=== PATIENT | male | born 1945 | race Caucasian/White ===

== ENCOUNTER 2017-10-01 21:38 | Inpatient (IN) | payer OTHER ==
[~2017-10-01] VITALS: Ht 160 cm; Wt 61.0 kg
[~2017-10-01 21:38] MED LIST: ASPIRIN EC325 M1; ATENOLOL 50MG T50 M1 PO; BACTRIM DS TAB1 EACH PO; BENADRYL25 MG; BLOOD PRESSURE MED; CHLORTHALIDONE25 MG PO; CHOLESTEROL MED; COZAAR 50 MG TA50 M2 PO; DUONEB 2.5-0.5 M3 ML INH; HYDROXYZINE HCL25 M1 PO; MEDROLDOSEPACK PO; PREDNISONE 20 M20 MG PO; RED YEAST RICE600 MG; STRI MC; VENTOLIN HFA 1818 GM INH; [UNRECOGNIZED DRUG - OTHER] MC
[2017-10-01 21:51] VITALS: BP 99/45
[2017-10-01 22:18] LABS: ABSOLUTE BASOPHILS 0.1 thou/uL (0.0-0.2); ABSOLUTE LYMPHOCYTES 1.4 thou/uL (0.8-5.3); ABSOLUTE MONOCYTES 1.2 thou/uL (0.0-1.2); ABSOLUTE NEUTROPHILS 11.4 thou/uL (1.6-8.1); BASOPHILS 0.7 %; EOSINOPHILS 0.2 %; HEMATOCRIT 39.2 % (42.0-52.0); HEMOGLOBIN 13.1 gm/dL (14.0-18.0); LYMPHOCYTES 10.1 %; MCH 29.2 pg (26.0-34.0); MCHC 33.4 g/dL (28.0-37.0); MCV 87.5 fL (80.0-100.0); MONOCYTES 8.3 %; MPV 7.5 fl. (7.2-11.1); NUCLEATED RBCS 0 /100WBC; PLATELET COUNT* 364 thou/uL (150-400); POLYS 80.7 %; RBC 4.48 mil/uL (4.50-6.00); WBC 14.1 thou/uL (4.0-11.0)
[2017-10-01 22:24] LABS: ANION GAP 12 mmol/L (7-16); BUN 71 mg/dL (7-18); CALCIUM 8.2 mg/dL (8.5-10.1); CHLORIDE 88 mmol/L (98-107); CO2 26 mmol/L (21-32); CREATININE 2.6 mg/dL (0.6-1.3); GLUCOSE 116 mg/dL (70-99); SODIUM 126 mmol/L (136-145)
[2017-10-01 22:27] LABS: INR 1.3; PROTIME 12.2 Seconds (9.20-11.50)
[2017-10-01 22:28] LABS: POTASSIUM 2.9 mmol/L (3.5-5.1)
[2017-10-01 22:40] LABS: ALBUMIN 2.3 g/dL (3.4-5.0); ALKALINE PHOSPHATASE 96 U/L (46-116); LIPASE 733 U/L (73-393); NT-PRO BRAIN NAT PEPTIDE 7461 pg/mL (<300); SGOT 27 U/L (15-37); SGPT 19 U/L (30-65); TOTAL BILIRUBIN 0.8 mg/dL (<0.1-1.0); TROPONIN-I LEVEL <0.06 ng/mL (<0.06)
[2017-10-01 23:45] LABS: URINE BILIRUBIN NEGATIVE (Negative); URINE BLOOD 2+ (Negative); URINE CLARITY CLEAR; URINE COLOR YELLOW; URINE GLUCOSE-RANDOM NEGATIVE (Negative); URINE KETONES NEGATIVE (Negative); URINE LEUKOCYTES 2+ (Negative); URINE NITRITE NEGATIVE (Negative); URINE PROTEIN NEGATIVE (Negative); URINE UROBILINOGEN 0.2 E.U./dl (0.2-1.0)
[2017-10-01 23:49] VITALS: BP 134/54
[2017-10-01 23:50] VITALS: BP 112/53
[2017-10-01 23:52] LABS: BACTERIA >30 Many /HPF (None Seen); CELLULAR CASTS 4-10 Moderate /LPF (None Seen); COARSE GRANULAR CASTS 0-3 Few /LPF (None Seen); CRYSTALS None Seen /LPF (None Seen); FINE GRANULAR CASTS 0-3 Few /LPF (None Seen); MUCUS 4-6 Moderate strn/LPF (None Seen); SQUAMOUS 0-3 Few /LPF (0-3); URINE RBC >20 Many /HPF (0-2); URINE WBC >25 Many /HPF (0-5); WBC CLUMPS Moderate (None Seen)
[2017-10-02 05:14] LABS: HEMOGLOBIN 12.6 gm/dL (14.0-18.0); MCH 29.1 pg (26.0-34.0); MCHC 33.2 g/dL (28.0-37.0); MCV 87.9 fL (80.0-100.0); MPV 7.5 fl. (7.2-11.1); RBC 4.32 mil/uL (4.50-6.00); WBC 12.8 thou/uL (4.0-11.0)
[2017-10-02 06:11] LABS: ALBUMIN 2.1 g/dL (3.4-5.0); CALCIUM 7.9 mg/dL (8.5-10.1); CREATININE 2.3 mg/dL (0.6-1.3); TOTAL BILIRUBIN 0.6 mg/dL (<0.1-1.0); TOTAL PROTEIN 5.9 g/dL (6.4-8.2)
--- NOTE | 2017-10-02 06:54 | NUR ---
PT ARRIVED TO UNIT FROM THE ER AT 2350. PT IS ALERT AND ORIENTED AT THAT TIME. VSS. PERRLA. PT IS VERY HARD OF HEARING. NO COMPLAINTS OF PAIN. PT HAS A PERSISTANT DRY COUGH. NO SPUTUM NOTED. CT SHOWS POSSIBLE NECROTIZING PNEUMONIA OR POSSIBLY TB. PT IS IN REVERSE ISOLATION. PT IS IN SINUS BRADYCARDIA.
[2017-10-02 08:00] VITALS: BP 123/56
--- NOTE | 2017-10-02 10:09 | EKG ---
[place] [address] ELECTROCARDIOGRAM REPORT Name: MARGIE LEUNG SR Room: [place] [address] ADM IN .R.#: [id number] Admission: 10/01/17 Attend Phys: Oliver Pearson Discharge: Date of : 41 Report #: [id number] THIS REPORT FOR: //name// [facility] ED Test Date: 2017-10-01 Test Time: 21:58:00 Pat Name: MARGIE LEUNG Department: Room: [facility] Gender: M Vp Home Health: OR : 1945 Requested By: Krystyna Yadav Order Number: [id number] MD: Evens Hankins Measurements Intervals Switzer Rate: 56 P: 50 CA: 159 QRS: 61 QRSD: 97 T: 40 QT: 466 QTc: 450 Interpretive Statements Sinus bradycardia nonspecific st changes No previous ECG available for comparison Electronically Signed On 10-02-2017 10:09:30 CDT by Evens Hankins [email or web address] <ELECTRONICALLY SIGNED> By: Evens Hankins MD, [facility] 10/02/17 1009 [id number] Evens Hankins MD, FACC /EPI
[2017-10-02 12:00] VITALS: BP 99/52
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
[2017-10-02 16:00] VITALS: BP 102/48
--- NOTE | 2017-10-02 18:22 | NUR ---
PATINET RESTING IN BED. ISOLATION FOR POSSIBLE TB. WHEAL TEST TO LEFT FOREARM ADMINISTERED TODAY, TO BE READ 48-72 HOURS AFTER ADMINISTRATION. AOX3 BUT CONFUSED AT TIMES. UP WITH STANDBY ASSIST. FAMILY AT BEDSIDE THE MAJORITY OF THE DAY. HOURLY ROUNDING COMPLETED FOR PATIENT SAFETY. URINE SAMPLE SENT TO LAB./ PATINET HAS NOT HAD A BOWEL MOVEMENT TODAY FOR SAMPLE. PATIENT HAS NOT PRODUCED SPUTUM FOR SAMPLE TODAY.
[2017-10-02 20:31] VITALS: BP 106/54
[2017-10-03 01:01] VITALS: BP 122/57
[2017-10-03 04:22] VITALS: BP 130/64
[2017-10-03 04:51] LABS: BE -2.8 mmol/L (-2 to +3); HCO3 19.7 mmol/L (22.0-26.0); PCO2 28.5 mmHg (35.0-45.0); pH 7.458 (7.340-7.450)
[2017-10-03 04:54] LABS: PO2 58.8 mmHg (75.0-100.0)
[2017-10-03 05:07] LABS: CALCIUM 8.3 mg/dL (8.5-10.1); CREATININE 1.7 mg/dL (0.6-1.3); MAGNESIUM 2.1 mg/dL (1.8-2.4); POTASSIUM 3.4 mmol/L (3.5-5.1)
[2017-10-03 05:14] LABS: HEMATOCRIT 40.2 % (42.0-52.0); HEMOGLOBIN 13.3 gm/dL (14.0-18.0); MCH 29.1 pg (26.0-34.0); MCHC 33.2 g/dL (28.0-37.0); MCV 87.4 fL (80.0-100.0); RBC 4.59 mil/uL (4.50-6.00); RDW-CV 14.1 % (10.5-14.5); WBC 14.8 thou/uL (4.0-11.0)
--- NOTE | 2017-10-03 06:46 | NUR ---
Pt reports he slept for most of the night. Awakened at 0430 when labs were drawn. Up to BR X1 assist to attempt BM, though pt had no BM. Pt's PO2 59 per am ABG; placed on 2L O2 per NC. Pt c/o discomfort with O2. Placed humidifier to O2 and requested resp tx. Will continue to monitor.
--- NOTE | 2017-10-03 08:09 | CON ---
[address] [address] CONSULTATION Name: MARGIE LEUNG SR Room: [address] IN M.R.#: [id number] Admission: 10/01/17 Attend Phys: Oliver Pearson Discharge: Date of : 41 Report #: [id number] THIS REPORT FOR: //name// CC: MARIANO Sawyer DATE OF SERVICE: 10/02/2017 ATTENDING PHYSICIAN: Colt St M.D. REASON FOR EVALUATION: CABG, pneumonia. HISTORY OF PRESENT ILLNESS: Chart reviewed, patient examined, 72-year-old gentleman with longstanding history of heavy smoking, also has issues of recurrent urinary tract infections, has a suprapubic catheter, presented with lightheadedness, was found to have electrolyte abnormalities including sodium of 126, creatinine 2.6. Lactic acid up to 2.3. Imaging of the chest, both plain film and CT noted a cavitary process, 3 x 7 cm in the left lower lobe with some air fluid level consistent with abscess. He is quite encephalopathic, which per the daughter, she was concerned about early dementia for a period of time, but this is clearly worse, not clear that he has had fevers, appears to have some weight loss. Does have some intermittent cough productive of some yellow sputum. Blood cultures are sterile thus far. Urinary antigens for pneumococcus and legionella are pending. Urine culture, sputum culture including AFB are pending as well. Empirically placed on meropenem, azithromycin. ALLERGIES: None known. MEDICATIONS: Include azithromycin, promethazine, ondansetron, chlorthalidone, atenolol, meropenem. PAST MEDICAL HISTORY: History of depression and history of suprapubic catheter, right inguinal hernia with mesh. SOCIAL HISTORY: Heavy smoker, daily ethanol. FAMILY HISTORY: Noncontributory. REVIEW OF SYSTEMS: Somewhat limited. Denies significant abdominal-related complaints. He has poor appetite. PHYSICAL EXAMINATION: GENERAL: He is alert. He is clearly confused. Appears chronically ill, undernourished. VITAL SIGNS: Temperature 97.6, pulse 58, respirations 16, [place] [address] CONSULTATION Name: MARGIE LEUNG Room: [address] IN [facility]#: [id number] Admission: 10/01/17 Attend Phys: Oliver Pearson Discharge: Date of : 41 Report #: [id number] 112/53. SKIN: Warm, dry. HEENT: Remarkable for poor dentition, multiple missing teeth. NECK: Supple. LUNGS: Few scattered coarse breath sounds, particularly on the left side. HEART: Borderline bradycardic, appears to be regular. ABDOMEN: Soft. There are no overt peritoneal signs. GENITOURINARY: Deferred. RECTAL: Deferred. LABORATORY DATA: Initial CBC: White count of 14.1, H and H 13.1 and 39.2, platelets of 364. Differential unremarkable. PT of 12.2, INR 1.3. A chest x-ray as described above, changes in the left lower lobe infiltrate with cavity, air fluid level. Electrolytes: Sodium 126, potassium 2.9, chloride 88, bicarbonate is 26, BUN and creatinine 71 and 2.6, glucose of 116. AST of 27, ALT of 19, lipase of 733, albumin of 2.3. Total protein 7.0. Estimated GFR of 24. Lactic acid initially was 1.8, repeat was 2.3. Prealbumin of 5.1. 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 Blood cultures sterile thus far. CT of the chest, left lower lobe infiltrate. A 3 x 7 cm cavitary process with air fluid and air fluid levels in the left lower lobe of the infiltrate. Lactic acid repeat was 1.6. ASSESSMENT: Cavitary pneumonia in the setting certainly broad differential. Certainly infection being high concern. exclude a malignancy either, but I agree with empiric antimicrobial therapy, lung abscess seems reasonable. I cannot find any evidence of TB exposure, although the site of the lower lobe deems it less likely. We will await the pending results including AFB smear, maintain isolation for now. We will adjust the meropenem dosing. Renal dysfunction. Discussed with the patient as well as his daughter. <ELECTRONICALLY SIGNED> By: Gil Moya MD 10/03/17 0809 1113 [id number] Moya MD /nt
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
[2017-10-03 11:31] VITALS: BP 116/55
--- NOTE | 2017-10-03 12:31 | NUR ---
CONTINUE TO FOLLOW, MET WITH PT'S DTR IN THE [facility]. PT STILL CONFUSED TODAY.
[2017-10-03 16:00] VITALS: BP 111/50
--- NOTE | 2017-10-03 20:17 | NUR ---
PATIENT RESTING IN BED. VITAL SIGNS STABLE ANDPAITNET IN NO APPARENT SIGNS OF DISTRESS AT THIOS TIME. HOURLKY ROUNDING COMPLETED FOR PATIENT SAFETY. PRECAUTIONS FOR SUSPECTED TB. ONE SPUTUM SAMPLE OBTAINED AND SEBT TO LAB, AWAITING 2 MORE SAMPLES.
[2017-10-03 20:20] VITALS: BP 131/69
[2017-10-04 04:00] VITALS: BP 134/61
--- NOTE | 2017-10-04 04:32 | NUR ---
A&O X4 CALM COOPERITVE. ISO FOR R/O TB. SR ON THE MONITOR. PT REPORTS PAIN CONGESTION. PT IS STAND BY ASSIST. SEE MAR. SEE CHARTING. PT REFUSED 0000 VITALS. VITALS WNL. FALL PRECAUTIONS IN PLACE. HOURLY ROUNDING FOR SAFETY.
[2017-10-04 07:34] LABS: HEMATOCRIT 37.5 % (42.0-52.0); HEMOGLOBIN 12.2 gm/dL (14.0-18.0); MCH 28.6 pg (26.0-34.0); MCHC 32.6 g/dL (28.0-37.0); MCV 87.8 fL (80.0-100.0); MPV 7.4 fl. (7.2-11.1); RBC 4.27 mil/uL (4.50-6.00); RDW-CV 14.3 % (10.5-14.5); WBC 14.1 thou/uL (4.0-11.0)
[2017-10-04 07:38] LABS: CALCIUM 7.9 mg/dL (8.5-10.1); CREATININE 1.5 mg/dL (0.6-1.3); POTASSIUM 3.3 mmol/L (3.5-5.1)
[2017-10-04 08:54] VITALS: BP 141/75
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
[2017-10-04 11:37] VITALS: BP 125/63
--- NOTE | 2017-10-04 14:31 | NUR ---
CONTINUE TO FOLLOW, DISCUSSED WITH AND ALISON MARMOLEJO. PT TO HAVE THERAPY, STILL CONFUSED. DTR GONE FOR THE DAY
[2017-10-04 16:25] VITALS: BP 133/87
[2017-10-04 16:56] LABS: BE -4.5 mmol/L (-2 to +3); HCO3 17.9 mmol/L (22.0-26.0); PCO2 26.6 mmHg (35.0-45.0); PO2 93.8 mmHg (75.0-100.0); pH 7.446 (7.340-7.450)
--- NOTE | 2017-10-04 17:04 | NUR ---
PT SHAWN RESTING IN BED, WATCHING TV- CARDIAC MONIOTOR IN PLACE ORDERED, TRACING ST- PT HR AT [address] IN 120-140'S- PT FOUND IN ROOM WITH O2 OFF, AND LABORED RESP- PT NOTED TO BE CLAMEY- O2 REAPPLIED AT 2L, WITH O2 SAT NOTED AT 94%- IVF STOPPED AND NOTIFIED, ORDERS RECIEVED FOR STAT ABG AND LACTIC- BNP TO BE COMPLETED WITH OKAY TO ADD TO MORNING [place] [address], IVF D/C'D WITH IV LASIX 40MG X1 ORDERED- ABG RESULTED, AWAITING LACTIC RESULTS AT THIS TIME- PT DENIES ANY PAIN AT THIS TIME- CALL LIGHT AND PERSONAL BELONGINGS WITH IN REACH- ALL NEEDS MET AT THIS TIME-WCTM
[2017-10-04 20:10] VITALS: BP 122/55
[2017-10-05] VITALS: BP 109/44
[2017-10-05 04:00] VITALS: BP 106/57
[2017-10-05 04:59] LABS: ABSOLUTE BASOPHILS 0.1 thou/uL (0.0-0.2); ABSOLUTE MONOCYTES 0.4 thou/uL (0.0-1.2); HEMATOCRIT 37.5 % (42.0-52.0); HEMOGLOBIN 12.5 gm/dL (14.0-18.0); LYMPHOCYTES 10.7 %; MCH 28.9 pg (26.0-34.0); MCHC 33.5 g/dL (28.0-37.0); MCV 86.4 fL (80.0-100.0); MONOCYTES 4.5 %; MPV 7.7 fl. (7.2-11.1); NUCLEATED RBCS 0 /100WBC; PLATELET COUNT* 417 thou/uL (150-400); POLYS 83.8 %; RBC 4.34 mil/uL (4.50-6.00); RDW-CV 14.3 % (10.5-14.5); WBC 9.6 thou/uL (4.0-11.0)
--- NOTE | 2017-10-05 05:16 | NUR ---
PT A&O X4 CALM COOPERITVE. PT BP RUNNING SOFT 100-110/40-50 RANGE ASYPMTOMATIC. PT WAS GIVEN ATIVAN ON PREVIOUS SHIFT PT HAS FELT SLEEPY SINCE. NO FLUIDS RUNNING. PT DENIES PAIN. PT REFUSED HS PO MEDICATIONS. SEE MAR. SEE CHARTING. PT ON ISO FOR R/O TB. STAND BY ASSIST. SR ON THE MONITOR. FALL PRECAUTIONS IN PLACE. HOURLY ROUNDING FOR SAFETY.
[2017-10-05 05:24] LABS: ALBUMIN 1.9 g/dL (3.4-5.0); CALCIUM 8.1 mg/dL (8.5-10.1); CREATININE 1.3 mg/dL (0.6-1.3); MAGNESIUM 1.8 mg/dL (1.8-2.4); POTASSIUM 3.6 mmol/L (3.5-5.1); TOTAL BILIRUBIN 0.5 mg/dL (<0.1-1.0); TOTAL PROTEIN 6.1 g/dL (6.4-8.2)
[2017-10-05 07:47] VITALS: BP 126/76
--- NOTE | 2017-10-05 10:04 | NUR ---
ASSUMED CARE OF PT THIS AM AROUND 0715- CLINICAL ESTHETICIAN IN PLACE ORDERED, TRACING SR THIS AM- UPON ASSESSMENT PT NOTED TO BE RESTING IN BED, EYES CLOSED- PT CALM, BUT NOTED TO BE GROGGY THIS AM-PT A&O X2-3 WITH INTERMITENT CONFUSION NOTED- CONTINENT VS INCONTINENT OF BOWEL, SUPRAPUBIC CATH IN PLACE D/D CLEAR AARON URINE- SBA WITH TRANSFERS FOR SAFETY-DIMINISHED LUNG SOUNDS NOTED, COUGH NOTED- VSS, O2 SAT 96% ON 2L VIA NC- ABDOMEN SOFT/FLAT/NON-TENDER, BS X4 QUADS- PT REPORTED TO HAVE HAD BM OVERNIGHT- IV NOTED TO RIGHT FA INTACT AND SL, IV ABT GIVEN THIS AM PRESCIBED, NO ADVERSE REACTIONS TO NOTE- ISOLATION IN PLACE AND MAINTAINED INDICATED AWAITIING TB SMEAR RESULTS- SET UP ASSIST WITH MEALS NOTED, FAIR PO INTAKE NOTED THIS AM WITH BREAKFAST- CALL LIGHT AND PERSONAL BELONGINGS WITH IN REACH- BED ALARM INPLACE AND WORKING FOR PT SAFETY- HOURLY ROUNDS IN PLACE R/T SAFETY/NEEDS- ALL NEEDS MET AT THIS TIME-WCTM
[2017-10-05 11:59] VITALS: BP 108/45
[2017-10-05 16:00] VITALS: BP 107/48
--- NOTE | 2017-10-05 16:17 | NUR ---
PT CURRENLTY RESTING IN BED, EYES CLOSED- CHAIR UPHOLSTERER IN PLACE ORDERED, TRACING SR- IV TO RIGHT FA INTACT AND SL, IV ABT GIVEN PRESCIBED- GOOD PO INTAKE NOTED THIS SHIFT WITH MEALS- PT UP TO BED SIDE CHAIR WITH MEALS, TOLERATING WELL- ECHO COMPLETED THIS SHIFT ORDERED, AWAITING RESULTS- PT DENIES ANY C/O PAIN/DISCOMFORT AT THIS TIME-PT NOTED TO HAVE IMPROVEMENT IN BREATHING THIS SHIFT- CALL LIGHT AND PERSONAL BELONGINGS WITH IN REACH-FREQUENT CHECKS IN PLACE R/T SAFET/NEEDS- PT ADVANCING TOWARDS GOALS INDICATED- ALL NEEDS MET AT THIS TIME-WCTM
--- NOTE | 2017-10-05 16:53 | 2DMMODE ---
[place] [address] 2 D/M-MODE ECHOCARDIOGRAM Name: MARGIE LEUNG SR Room: [place] [address] ADM IN [facility]#: [id number] Admission: 10/01/17 Attend Phys: Russell Sawyer Discharge: Date of : 41 Date of Service: 10/05/17 1653 Report #: [id number] THIS REPORT FOR: //name// APPROVED REPORT Study performed: 10/05/2017 14:59:33 EXAM: Comprehensive 2D, Doppler, and color-flow Echocardiogram Patient Location: In-Patient Room #: [facility] Status: routine BSA: 1.66 HR: 73 bpm BP: 126/76 mmHg Rhythm: NSR Other Information Study Quality: Good Indications Sepsis Dyspnea 2D Dimensions LVEF(%): 65.74 (>50%) IVSd: 10.66 (7-11mm) LVOT Diam: 19.84 (18-24mm) LVDd: 47.24 mm PWd: 10.88 (7-11mm) Ascending Ao: 32.68 (22-36mm) LVDs: 30.17 (25-40mm) Aortic Root: 33.65 mm Faustin's LVEF: 65.74 % Volumes Left Atrial Volume (Systole) LA ESV Index: 25.30 mL/m2 Aortic Valve AoV Peak Vishal.: 2.76 m/s AO Peak Gr.: 30.45 mmHg LVOT Max P.11 mmHg AO Mean Gr.: 17.73 mmHg LVOT Mean P.41 mmHg LVOT Max V: 0.88 m/s AO V2 VTI: 61.95 cm LVOT Mean V: 0.53 m/s CASSIE (VTI): 0.99 cm2 LVOT V1 VTI: 19.87 [place] [address] 2 D/M-MODE ECHOCARDIOGRAM Name: MARGIE LEUNG Room: [address] IN .R.#: [id number] Admission: 10/01/17 Attend Phys: Russell Sawyer Discharge: Date of : 41 Date of Service: 10/05/17 1653 Report #: [id number] E/A Ratio: 1.15 MV Decel. Time: 217.55 ms MV E Max Vishal.: 0.61 m/s MV PHT: 63.09 ms MVA (PHT): 3.49 cm2 TDI E/Lateral E': 4.69 E/Medial E': 7.63 Medial E' Vishal.: 0.08 m/s Lateral E' Vishal.: 0.13 m/s Pulmonary Valve PV Peak Vishal.: 0.67 m/s PV Peak Gr.: 1.81 mmHg Tricuspid Valve TR Peak Gr.: 29.45 mmHg RVSP: 34.00 mmHg Left Ventricle The left ventricle is normal size. There is normal LV segmental wall motion. There is normal left ventricular wall thickness. Left ventricular systolic function is normal. The left ventricular ejection fraction is within the normal range. LVEF is 55-60%. The left ventricular diastolic function is normal. Right Ventricle The right ventricle is normal size. The right ventricular systolic function is normal. Atria The left atrium size is normal. The right atrium size is normal. Aortic Valve Moderate aortic valve sclerosis. No aortic regurgitation is present. Mild to moderate aortic stenosis. Mitral Valve The mitral valve is normal in structure. Mild mitral regurgitation. No evidence of mitral valve stenosis. Tricuspid Valve The tricuspid valve is normal in structure. Trace tricuspid regurgitation. The RVSP is 30-35 mmHg. Pulmonic Valve Pulmonic valve is not well visualized[place] [address] 2 D/M-MODE ECHOCARDIOGRAM Name: MARGIE LEUNG SR Room: [address] IN [facility]#: [id number] Admission: 10/01/17 Attend Phys: Russell Sawyer Discharge: Date of : 41 Date of Service: 10/05/17 1653 Report #: [id number] regurgitation. Great Vessels The aortic root is normal in size. IVC is normal in size and collapses with >50% inspiration Pericardium There is no pericardial effusion. <Conclusion> LVEF is 55-60%. Mild to moderate aortic stenosis. Mild mitral regurgitation. <ELECTRONICALLY SIGNED> By: Evens Hankins MD, FACC 10/05/171652 52 52 Evens Hankins MD, FACC /INF
[2017-10-05 20:10] VITALS: BP 124/66
[2017-10-06] VITALS: BP 114/53
[2017-10-06 04:00] VITALS: BP 152/78
--- NOTE | 2017-10-06 04:32 | NUR ---
A&O X4 CALM COOPERITVE. SR ON THE MONITOR. STAND BY ASSIST. 2L O2. VITALS WNL. SEE MAR. SEE CHARTING. FALL PRECAUTIONS IN PLACE. HOURLY ROUNDING FOR SAFETY.
[2017-10-06 05:42] LABS: HEMATOCRIT 35.1 % (42.0-52.0); HEMOGLOBIN 11.8 gm/dL (14.0-18.0); MCH 28.9 pg (26.0-34.0); MCHC 33.5 g/dL (28.0-37.0); MCV 86.4 fL (80.0-100.0); MPV 7.6 fl. (7.2-11.1); RBC 4.07 mil/uL (4.50-6.00); WBC 9.4 thou/uL (4.0-11.0)
[2017-10-06 05:59] LABS: CALCIUM 8.1 mg/dL (8.5-10.1); CREATININE 1.2 mg/dL (0.6-1.3); MAGNESIUM 2.1 mg/dL (1.8-2.4); POTASSIUM 3.7 mmol/L (3.5-5.1)
[2017-10-06 08:00] VITALS: BP 130/83
[2017-10-06 12:00] VITALS: BP 144/71
--- NOTE | 2017-10-06 16:29 | NUR ---
CM SPOKE TO THE RN TO DISCUSS PATIENT'S COGNITION AND ABILITY TO COMPLETE DPOA PAPERWORK. RN INFORMS THAT AT THIS TIME PATIENT IS NOT ALERT AND ORIENTED ENOUGH TO COMPLETE FORMS. CM SPOKE TO THE PATIENTS DTR AUTUMN TO DISCUSS DISCHARGE PLANNING NEEDS AND SKILLED AT D/C. PATIENTS DTR INFORMS THAT THE PATIENT DOES NOT WANT TO GO TO SKILLED AND WANTS TO GO HOME. SHE ALSO INFORMS THAT SHE HAS BBEN TALKING WITH FAMILY AND ARE PLANNING TO POSSIBLY HAVE THE PATIENT STAY WITH THEM IN THEIR HOME, AND HAVE CAREGIVER ASSIST HIM IN THEIR HOME.
[2017-10-06 16:31] VITALS: BP 161/90
--- NOTE | 2017-10-06 17:37 | NUR ---
PT PLEASANTLY CONFUSED THROUGHOUT SHIFT. PT HAD ELECTROMEDICAL EQUIPMENT REPAIRER COUGH. VOIDING PER URINAL. GOOD APPETITE. UPPER 90S ON RA. ANTIBIOTIC GIVEN ORDERED. FAMILY AT BS AND UPDATED ON PLAN OF CARE
[2017-10-07 00:41] VITALS: BP 123/69
--- NOTE | 2017-10-07 03:53 | NUR ---
PT ALERT ORIENTED FORGETFUL, INITAL ASSESSMENT PT ON RA. O2 SAT 85%. PT PLACED ON 2 LITERS AND RAPIDLY CAME UP TO 92% OVERNIGHT SLEEP STUDY IN PROGRESS. TELEMETRY SHOWS SR PAC. SUPRAPUBIC CATH DRAINING DK YELLOW. DENIES PAIN. WILL CONTINUE TO MONITOR.
[2017-10-07 08:21] VITALS: BP 159/81
--- NOTE | 2017-10-07 14:27 | NUR ---
PT WALKED ENTIRE UNIT WITH WALKER AND SB ASSIST
--- NOTE | 2017-10-07 16:23 | NUR ---
PT TO BE TRANSFERRED TO [facility]. PT REFUSES TRANSFER
--- NOTE | 2017-10-07 16:25 | NUR ---
PT UP IN CHAIR MOST OF SHIFT. PT AMBULATED ENTIRE UNIT TODAY WITH WALKER-SATS IN UPPER 90S ON 2L. PT CONTINUES TO HAVE COUGH,OCASSIONALLY PRODUCTIVE. PT A&OX3 BUT FORGETFUL AT TIME. FAMILY AT BS AND UPDATED ON CARE
[2017-10-07 16:52] VITALS: BP 147/97
[2017-10-07 20:00] VITALS: BP 146/83
--- NOTE | 2017-10-08 04:25 | NUR ---
PT ALERT ORIENTED. USES WALKER WITH STAND BY ASSIST. MED SURG STATUS. O2 AT 2 LITERS NC. WILL CONTINUE TO MONITOR.
[2017-10-08 16:00] VITALS: BP 135/70
--- NOTE | 2017-10-08 18:39 | NUR ---
PATIENT RESTING IN BED. UP TO CHAIR IN ROOM AND AMBULATING WITH STANDBY ASSISTANCE ONLY. PAITNET UTILIZING 2L PER NASAL CANULA. PATIET TO HAVE CT CHEST TOMORROW AND LOOKS FORWARD TO DISCHARGE SOON.
[2017-10-09] VITALS (7 sets, daily range): BP systolic 97–170; BP diastolic 41–79
--- NOTE | 2017-10-09 04:58 | NUR ---
ASSUMED CARE OF PT AT 1930, NURSING ASSESSMENT COMPLETED AT START OF SHIFT. PT DENIES PAIN, VOICED NO CONCERNS. PT IS MED SURG STATUS. HOURLY ROUNDING COMPLETED, FALL PRECAUTIONS IN PLACE, CALL LIGHT WITHIN REACH. NO FALLS THIS SHIFT.
[2017-10-09] MEDS ORDERED: CIPRO500 MG PO (10:21)
[2017-10-09] MEDS ORDERED: PREDNISONE 10 M10 M1 PO (10:22)
[2017-10-09] MEDS ORDERED: MUCINEX600 MG PO (10:22)
--- NOTE | 2017-10-09 14:23 | NUR ---
CONTINUE TO FOLLOW, MET WITH PT AND DTR. PT ABLE TO ANSWER QUESITONS AND STATE WHO HE WANTED HIS DPOA. SIGNED AND NOTARIZED, COPIES TO CHART AND PT/DTR. PLAN IS FOR DC HOME SOON, TO HAVE BRONCH TOMORROW. DISCUSSED HH, CHOSE [facility]. CALLED AND FAXED INITIAL REF TO [facility].
--- NOTE | 2017-10-09 18:22 | NUR ---
PATIENT RESTING IN BED. UP TO AMBULATE IN HALLWAYS PER ORDERS. BRONCHOSCOPY TOMORROW. PATINET EXPECTED TO DISCHARGE TO HOME WITH HOME HEALTH. HOURLY ROUNDING COMPLETED FOR PATIENT SAFETY AND PATIENT IS PROGRESSING TOWARS GOALS.
--- NOTE | 2017-10-10 02:56 | NUR ---
PT ALERT ORIENTED. UP WITH WALKER AND STD BY ASSIST. PT NPO [place]CE [place] FOR BRONCH THIS AM. O2 AT 2 LITERS NC. STUDENT RECRUITER COUGH NOTED. SUPRA PUBIC CATHETER IN PLACE. PT MED SURG STATUS. WILL CONTINUE TO ASSESS.
[2017-10-10 04:00] VITALS: BP 129/64
--- NOTE | 2017-10-10 06:55 | NUR ---
PT NPO [place] FOR BRONCH.
[2017-10-10 07:50] VITALS: BP 142/65
[2017-10-10 09:28] VITALS: BP 142/65
--- NOTE | 2017-10-10 12:16 | NUR ---
TENTATIVE DC ORDERS RECEIVED, AWAIT OK FOR DC AFTER BRONCH AND O2 SAT CHECKS. CALLED AND FAXED DC ORDERS TO [facility].
[2017-10-10 13:05] VITALS: BP 111/57
[2017-10-10 13:07] VITALS: BP 111/57
--- NOTE | 2017-10-10 13:29 | PROC ---
[address] [address] PROCEDURE REPORT Name: MARGIE LEUNG SR Room: [address] IN .R.#: [id number] Admission: 10/01/17 Attend Phys: Oliver Pearson Discharge: Date of : 41 Report #: [id number] THIS REPORT FOR: //name// CC: MARIANO Sawyer NAME OF PROCEDURE: Flexible fiberoptic bronchoscopy examination. INDICATION: Cavitary pneumonia involving left lower lobe. COMPLICATIONS: Decreased level of consciousness from medication. SAMPLES OBTAINED. 1. Sterile microbrush, left lower lobe. 2. Bronchial washing, left lower lobe. FINDINGS: 1. Vocal cord is normal. 2. Length of trachea normal. 3. All bronchopulmonary segments patent. 4. No endobronchial lesions. MEDICATIONS GIVEN: Versed 2 mg IV, fentanyl 50 mcg IV. At the end of the procedure, the patient received naloxone 0.4 mg and also flumazenil 0.5 mg. DISCUSSION AND DESCRIPTION OF PROCEDURE: The patient is a 72-year-old male with a left lower lobe cavitation. He has had x-ray of sputum specimens, which had been negative for AFB smear and a QuantiFERON Gold study that was negative. It was elected to proceed with the above procedure. The patient was kept n.p.o. He received aerosolized Xylocaine for oropharyngeal anesthesia nasal passages were anesthetized as well. Once this was accomplished, the timeout was performed. The patient was able to identify the procedure. The staff introduced himself to them. Equipment was in working order. With the patient in the supine position, the procedure was performed. He received fentanyl and Versed as outlined above. Bronchoscope was inserted into the right nostril, directed transnasally. Encountered were the vocal cords, which were normal in appearance. They moved appropriately. Bronchoscope was then advanced into the proximal trachea at the level of the jm. There were no abnormalities encountered. Attention was paid to the left and right tracheobronchial tree. The right [place] [address] PROCEDURE REPORT Name: MARGIE LEUNG SR Room: [address] IN [facility]#: [id number] Admission: 10/01/17 Attend Phys: Oliver Pearson Discharge: Date of : 41 Report #: [id number] bronchopulmonary segments throughout. Left side demonstrated similar findings which were no endobronchial lesions and patency of the bronchopulmonary segment. Attention was paid to the left lower lobe. The above samples were obtained. Bronchoscope was removed without incident. The patient's saturation began to decrease. It was elected to proceed with reversal of the above medications with naloxone as well as Romazicon. The patient is awake, he is alert. He is responsive. His saturations are improving on a nasal cannula and his FiO2 will be titrated accordingly. <ELECTRONICALLY SIGNED> By: Dennis Dowling MD 10/10/17 1329 1113 [id number] Dowling MD /nt
--- NOTE | 2017-10-10 14:57 | NUR ---
ORDER RECEIVED TO DISCHARGE PATIENT TO HOME WITH HOME HEALTH AND O2. PATIENT TAKEN VIA WHEELCHAIR TO AWAITNIGN CAR WITH DAUGHTER PRESENT. MED REC, MEDICATION EDUCATION, STROKE EDUCATION, AND NEED FOR FOLLOW UP APPOINTMENTS COVERED ANSD STATED UNDERSTOOD BY PATIENT AND DAUGHTER. PORTABLE O2 DELIVERED AND PROVIDED FOR DISCHARGE. HOURLY ROUNDING COMPLETD FOR PATIENT SAFETY. DC TIME OF 14:05.
--- NOTE | 2017-10-12 13:15 | CNG ---
[address] [address] CYTO-NONGYN REPORT PROCEDURE Name: MARGIE LEUNG Room: [address] IN [facility].#: [id number] Admission: 10/01/17 Date of : 41 Discharge: 10/10/17 Report #: [id number] Path Case #: [id number] CYTOPATHOLOGY REPORT COLLECTION DATE: 10/10/2017 RECEIVED DATE: 10/11/2017 SUBMITTING PHYS: Dr. Dennis Dowling OTHER PHYS: Dr. Russell Cortez CLINICAL HISTORY: Toxic encephalopathy, Pneumonia, Hyponatremia, Hypokalemia, sepsis due to LLL cavitary pneumonitis, TB? SPECIMEN(S) RECEIVED: A.Bronchial wash, LLL * * * * * * * * * * * * FINAL DIAGNOSIS: A. Bronchial wash, LLL: - No malignant cells identified. - Bronchial epithelial cells, alveolar macrophages, and squamous cells present with background of acute and chronic inflammatory cells. - GMS: Negative for Pneumocystis and fungal elements. - AFB: Negative for mycobacterial organisms (SANJEEV:db; 10/12/2017) COMMENT: Special stains: GMS and Kinyoun. PATHOLOGIST: Casey Aden M.D. REPORT ELECTRONICALLY SIGNED BY: Casey Aden M.D. DATE/TIME: 10/12/2017 13:15 * * * * * * * * * * * * GROSS PATHOLOGY: A. Bronchial wash, LLL: The specimen is submitted unfixed, labeled "Noemi Margie Cheikh Larios". Received by the Cytology Department is 20 mL of cloudy pink fluid. One ThinPrep slide for pap stain, one ThinPrep slide for silver stain, and one ThinPrep slide for AFB stain were prepared. (lg 10.11.2017) LADLE OPERATOR(S): KAITLIN Diggs(ASCP) INITIAL CPT CODE(S): A; 49995, 34327, 54745 Professional services performed by [facility] at [facility], [address] [place] [address]. Technical services performed by [facility] at [address] [place] [address], [address], [place] [address]. [place] [address] CYTO-NONGYN REPORT PROCEDURE Name: MARGIE LEUNG SR Room: [address] IN M.R.#: [id number] Admission: 10/01/17 Date of : 41 Discharge: 10/10/17 Report #: [id number] Path Case #: [id number] [facility], [address] [place] [address] PHONE: [phone] DIRECTOR: Orion Erickson M.D. * * * END OF REPORT * * *
== END 2017-10-10 14:15 | disposition home health service (06) | DRG 853 ==
LOC: M.ERS 21:38 → M.2W 23:06 → M.TBA-ER 23:06 → M.2W 23:27
PROVIDERS: Emergency Medicine; Internal Medicine; Internal Medicine Pulmonary Disease; ADMIT Internal Medicine
PROC: 0B9J8ZX Drainage of Left Lower Lung Lobe, Via Natural or Artificial Opening Endoscopic, Diagnostic (ICD-10-PCS; 2017-10-01)
PROC: B24BZZ4 Ultrasonography of Heart with Aorta, Transesophageal (ICD-10-PCS; principal; 2017-10-05)
PROC: 0BDB8ZX Extraction of Left Lower Lobe Bronchus, Via Natural or Artificial Opening Endoscopic, Diagnostic (ICD-10-PCS; 2017-10-10)
DX: A41.9 Sepsis, unspecified organism (principal); G92 Toxic encephalopathy; J18.9 Pneumonia, unspecified organism; J96.01 Acute respiratory failure with hypoxia; T83.518A Infection and inflammatory reaction due to other urinary catheter, initial encounter; E87.1 Hypo-osmolality and hyponatremia; J44.0 Chronic obstructive pulmonary disease with (acute) lower respiratory infection; E87.2 Acidosis; F10.27 Alcohol dependence with alcohol-induced persisting dementia; F10.231 Alcohol dependence with withdrawal delirium; E87.6 Hypokalemia; F17.210 Nicotine dependence, cigarettes, uncomplicated; F32.9 Major depressive disorder, single episode, unspecified; I73.9 Peripheral vascular disease, unspecified; I95.2 Hypotension due to drugs; I08.0 Rheumatic disorders of both mitral and aortic valves; Y83.8 Other surgical procedures as the cause of abnormal reaction of the patient, or of later complication, without mention of misadventure at the time of the procedure; Z28.21 Immunization not carried out because of patient refusal; Y92.89 Other specified places as the place of occurrence of the external cause

== ENCOUNTER → 2017-11-23 | Outpatient (CLI) | payer OTHER ==
[~2017-11-23] MED LIST changes: +AMOXICILLIN 50500 MG PO; +ASPIRIN325 PO; +ATENOLOL 100MG100 MG PO; +BENZONATATE100 MG PO; +CIPRO500 MG PO; +DIGOXIN250 MCG PO; +FOLIC ACID1 MG PO; +K-DUR 20 MEQ T20 MEQ PO; +LASIX 40 MG TAB40 M1 PO; +LEVALBUTER1.25 MG/0. INH; +LEVAQUIN 500 M500 M1 PO; +LEVAQUIN 500 M500 M3 PO; +MUCINEX600 MG PO; +PACERONE 200 M200 M1 PO; +PREDNISONE 10 M10 M1 PO; +PRENATAL TABLE1 EAC2 PO; +PROTONIX 20 MG20 M1 PO; +SEROQUEL 25 MG25 M1 PO; +TOPROL XL100 MG PO; +VITAMIN B-1100 M1 PO
== END ==
LOC: M.RAD 13:59
DX: D71 Functional disorders of polymorphonuclear neutrophils (principal); J98.11 Atelectasis; I70.0 Atherosclerosis of aorta; J69.0 Pneumonitis due to inhalation of food and vomit

== ENCOUNTER 2018-03-03 18:43 | Inpatient (IN) | payer OTHER ==
[~2018-03-03] VITALS: Ht 162.6 cm; Wt 63.0 kg
[~2018-03-03 18:43] MED LIST changes: -AMOXICILLIN 50500 MG PO; -ASPIRIN325 PO; -ATENOLOL 100MG100 MG PO; -BENZONATATE100 MG PO; -DIGOXIN250 MCG PO; -FOLIC ACID1 MG PO; -K-DUR 20 MEQ T20 MEQ PO; -LASIX 40 MG TAB40 M1 PO; -LEVALBUTER1.25 MG/0. INH; -LEVAQUIN 500 M500 M1 PO; -LEVAQUIN 500 M500 M3 PO; -PACERONE 200 M200 M1 PO; -PRENATAL TABLE1 EAC2 PO; -PROTONIX 20 MG20 M1 PO; -SEROQUEL 25 MG25 M1 PO; -TOPROL XL100 MG PO; -VITAMIN B-1100 M1 PO
[2018-03-03 18:50] VITALS: BP 124/52
[2018-03-03] MEDS ORDERED: AMOXICILLIN 50500 MG PO (19:12)
[2018-03-03 19:27] LABS: HEMATOCRIT 33.6 % (42.0-52.0); HEMOGLOBIN 10.9 gm/dL (14.0-18.0); MCH 28.7 pg (26.0-34.0); MCHC 32.4 g/dL (28.0-37.0); MCV 88.5 fL (80.0-100.0); MPV 6.7 fl. (7.2-11.1); NUCLEATED RBCS 0 /100WBC; PLATELET COUNT* 649 thou/uL (150-400); RBC 3.79 mil/uL (4.50-6.00); RDW-CV 12.7 % (10.5-14.5); WBC 28.6 thou/uL (4.0-11.0)
[2018-03-03 19:37] LABS: URINE BILIRUBIN NEGATIVE (Negative); URINE BLOOD NEGATIVE (Negative); URINE CLARITY CLEAR; URINE COLOR YELLOW; URINE GLUCOSE-RANDOM NEGATIVE (Negative); URINE KETONES NEGATIVE (Negative); URINE LEUKOCYTES-REFLEX TRACE (Negative); URINE NITRITE-REFLEX NEGATIVE (Negative); URINE PROTEIN NEGATIVE (Negative); URINE UROBILINOGEN 0.2 E.U./dl (0.2-1.0)
[2018-03-03 19:37] LABS: ANION GAP 8 mmol/L (7-16); BUN 46 mg/dL (7-18); CALCIUM 8.4 mg/dL (8.5-10.1); CHLORIDE 92 mmol/L (98-107); CO2 27 mmol/L (21-32); CREATININE 2.2 mg/dL (0.6-1.3); GLUCOSE 138 mg/dL (70-99); POTASSIUM 3.9 mmol/L (3.5-5.1); SODIUM 127 mmol/L (136-145)
[2018-03-03 19:43] LABS: ABSOLUTE LYMPHOCYTES 2.6 thou/uL (0.8-5.3); ABSOLUTE MONOCYTES 0.9 thou/uL (0.0-1.2); ABSOLUTE NEUTROPHILS 25.2 thou/uL (1.6-8.1); TOXIC GRANULATION 3+
[2018-03-03 19:44] LABS: CLUMPED PLTS OCCASIONAL; PLATELET ESTIMATE INCREASED
[2018-03-03 19:48] LABS: ALBUMIN 2.7 g/dL (3.4-5.0); ALKALINE PHOSPHATASE 74 U/L (46-116); LIPASE 155 U/L (73-393); NT-PRO BRAIN NAT PEPTIDE 5637 pg/mL (<300); SGOT 15 U/L (15-37); SGPT 31 U/L (30-65); TOTAL BILIRUBIN 0.6 mg/dL (<0.1-1.0); TOTAL PROTEIN 8.2 g/dL (6.4-8.2); TROPONIN-I LEVEL <0.06 ng/mL (<0.06)
[2018-03-03 20:17] LABS: HYALINE CASTS 0-3 Few /LPF (None Seen); MUCUS None Seen strn/LPF (None Seen); SQUAMOUS NONE SEEN /LPF (0-3)
[2018-03-03 20:18] LABS: AMORPHOUS URATES Few /LPF (None Seen); URINE RBC None Seen /HPF (0-2); URINE WBC-REFLEX 0-5 Rare /HPF (0-5)
--- NOTE | 2018-03-03 21:51 | NUR ---
CENTRAL LINE PLACEMENT BY XRAY TO CONFIRM PLACEMENT. VERBAL CONFIRMATION TO USE CENTRAL LINE PLACEMENT IS GOOD.
[2018-03-03 22:15] VITALS: BP 89/43
--- NOTE | 2018-03-03 22:30 | NUR ---
PT ARRIVED TO UNIT @ 2220. NSR. RR 16. CONFUSED. ACCORDING TO FAMILY THIS IS HIS BASELINE. PLEASENT. AFEBRILE. PLACED DRAINAGE BAG TO SUPRAPUBIC CATH. PT DAUGHTER STATED HE JUST GOT IT REPLACED ON MONDAY 02/26. PT GREEN CAP WAS SENT HOME WITH FAMILY ALONG WITH YUDITH. SPOKE WITH DAUGHTER MALATHI LOPEZ AND SON JULIETA LEUNG UPDATED ON CURRENT CARE. THEY VOICED UNDERSTANDING. BP SOFT BUT MAP >60. PT STATES HE HAS HAD DIARRHEA FOR "SOME TIME". HE SAYS HIS BOTTOM ITCHES AND STINGS. PT BUTTOCKS IS EXREMELY IRRITATED, ERYTHEMA AROUND ANIUS. WILL CONTINUE TO MONITOR CLOSELY.
[2018-03-03 23:00] VITALS: BP 99/60
[2018-03-04] VITALS (45 sets, daily range): BP systolic 78–126; BP diastolic 33–95
[2018-03-04 05:33] LABS: HEMATOCRIT 27.8 % (42.0-52.0); HEMOGLOBIN 9.1 gm/dL (14.0-18.0); MCHC 32.7 g/dL (28.0-37.0); MCV 88.8 fL (80.0-100.0); MPV 6.4 fl. (7.2-11.1); RBC 3.13 mil/uL (4.50-6.00); RDW-CV 12.6 % (10.5-14.5); WBC 24.1 thou/uL (4.0-11.0)
[2018-03-04 05:48] LABS: ALBUMIN 1.9 g/dL (3.4-5.0); CALCIUM 7.2 mg/dL (8.5-10.1); CREATININE 1.8 mg/dL (0.6-1.3); POTASSIUM 3.8 mmol/L (3.5-5.1); TOTAL BILIRUBIN 0.4 mg/dL (<0.1-1.0); TOTAL PROTEIN 6.2 g/dL (6.4-8.2)
--- NOTE | 2018-03-04 06:00 | NUR ---
PATIENT SLOWLY PROGRESSING TOWARDS GOALS. BP WNL ON LEVO GTT LOW DOSE 3MCG/MIN. PT MAP CONSISTENTLY STAYED <60 DISPITE 500 ML BOLUS. FEACEL TUBE PLACED D/T PT SKIN VULNERABLE TO DAMAGE, HAD CONTINOUS LIQUID STOOLS. PT ON ANTIBIOTICS. URINE OUTPUT ADEQUATE. CONTINUED AFEBRILE. PT BED ALARM IN PLACE. BED TO LOWEST POSITION. WILL CONTINUE TO MONITOR.
--- NOTE | 2018-03-04 09:01 | NUR ---
PATIENT CARE ASSUMED AT 0700. PATIENT AWAKE, ALERT, ONLY ORIENTED TO PERSON. NOTED THAT PATIENT HAS EARLY DEMENTIA PER FAMILY REPORT. PATIENT ALSO DRINKS "4 BEERS" A DAY, BUT THAT NUMBER CHANGES EVERYTIME ASKED. DOES HAVE MILD TREMORS AT THIS TIME, BUT CALM, COOPERATIVE WITH CARE. DENIES PAIN. CURRENTLY ON 2L NC WHILE SLEEPING, BUT O2 SAT WNL ON ROOM AIR WHILE AWAKE. 2 MCG/MIN LEVOPHED INFUSING TO KEEP MAP >65. CURRENT BP 124/62 (72). TRACING NSR ON SECURITY SYSTEMS MANAGER. DOES HAVE PERSISTANT COUGH, FAMILY REPORTS PATIENT HAS HAD THIS COUGH FOR YEARS. REFUSED BREAKFAST TRAY. STATED HE IS "TRYING TO SLEEP". WILL ACQUIRE FLU SWAB AND URINE FOR STREP PNEUMO WHEN PATIENT ALLOWS. SUPRAPUBIC CATHETER ACCESSED, GOOD URINE OUTPUT NOTED. RIGHT TRIPLE LUMEN IJ IN PLACE, DOES HAVE BLOODY DRAINAGE DRIED DRAINAGE UNDER DRESSING BUT IT REMAINS INTACT. RIGHT AC 20G IV PATENT. WILL CONTINUE WITH CURRENT PLAN OF CARE.
[2018-03-04 10:45] LABS: INR 1.5; PROTIME 15.8 Seconds (9.20-11.50)
--- NOTE | 2018-03-04 11:01 | EKG ---
[place] [address] ELECTROCARDIOGRAM REPORT Name: MARGIE LEUNG SR Room: [address] ADM IN .R.#: [id number] Admission: 03/03/18 Attend Phys: Ottoniel Eaton, Discharge: Date of : 41 Report #: [id number] THIS REPORT FOR: //name// [facility] ED Test Date: 2018-03-03 Test Time: 18:51:54 Pat Name: MARGIE LEUNG Department: Room: [facility] Gender: M Delineator: Filipe DOBSON : 1945 Requested By: Krystyna Yadav Order Number: [id number] MD: Joel Sanchez Measurements Intervals [place] Rate: 75 P: 72 MD: 123 QRS: 51 QRSD: 98 T: 23 QT: 385 QTc: 430 Interpretive Statements Sinus rhythm Baseline wander in lead(s) I,II,aVR Compared to ECG 10/01/2017 21:58:00 Sinus bradycardia no longer present ST (T wave) deviation no longer present Electronically Signed On 03-04-2018 11:01:03 CDT by Joel Sanchez [email or web address] <ELECTRONICALLY SIGNED> By: Colt Sanchez MD, [facility] 03/04/18 110 50 50 Colt Sanchez MD, FAC /EPI
[2018-03-04 11:19] LABS: INFLUENZA A ANTIGEN None Detected (None Detect); INFLUENZA B ANTIGEN None Detected (None Detect)
[2018-03-04 11:57] LABS: % SATURATION 8 % (20-39); IRON 10 ug/dL (50-175)
--- NOTE | 2018-03-04 17:26 | NUR ---
PATIENT SOMEWHAT PROGRESSING TOWARDS GOALS. LEVO GTT RUNNING AT 1 MCG/MIN. CT CHEST/ABD/PELVIS COMPLETED TODAY. PATIENT HAS PULMONARY ABCESS. DR KEEN NOTIFIED. PULMONARY CONSULTED, AWAITING CALL BACK. PATIENT HAS SEVERE HACKY COUGH AT TIMES. CONTINUING TO HAVE LIQUID STOOLS OUT OF FLEXISEAL.
--- NOTE | 2018-03-04 21:00 | NUR ---
CLARIFIED ORDER FOR PATIENT TB SPOT TEST, NO NEED FOR REVERSE ISO AT THIS TIME PER DR. HARRIS.
[2018-03-05] VITALS (21 sets, daily range): BP systolic 109–155; BP diastolic 35–78
[2018-03-05 04:45] LABS: ABSOLUTE BASOPHILS 0.1 thou/uL (0.0-0.2); ABSOLUTE EOSINOPHILS 0.1 thou/uL (0.0-0.7); ABSOLUTE LYMPHOCYTES 1.7 thou/uL (0.8-5.3); ABSOLUTE MONOCYTES 1.3 thou/uL (0.0-1.2); ABSOLUTE NEUTROPHILS 24.4 thou/uL (1.6-8.1); BASOPHILS 0.2 %; EOSINOPHILS 0.4 %; HEMATOCRIT 27.4 % (42.0-52.0); HEMOGLOBIN 8.9 gm/dL (14.0-18.0); LYMPHOCYTES 6.2 %; MCH 29.1 pg (26.0-34.0); MCHC 32.5 g/dL (28.0-37.0); MCV 89.4 fL (80.0-100.0); MONOCYTES 4.6 %; NUCLEATED RBCS 0 /100WBC; PLATELET COUNT* 443 thou/uL (150-400); POLYS 88.6 %; RBC 3.06 mil/uL (4.50-6.00); RDW-CV 12.6 % (10.5-14.5); WBC 27.5 thou/uL (4.0-11.0)
[2018-03-05 05:11] LABS: ALBUMIN 1.7 g/dL (3.4-5.0); CALCIUM 7.1 mg/dL (8.5-10.1); CREATININE 1.4 mg/dL (0.6-1.3); MAGNESIUM 2.1 mg/dL (1.8-2.4); POTASSIUM 3.6 mmol/L (3.5-5.1); TOTAL BILIRUBIN 0.3 mg/dL (<0.1-1.0); TOTAL PROTEIN 5.8 g/dL (6.4-8.2); TROPONIN-I LEVEL 0.1 ng/mL (<0.06)
--- NOTE | 2018-03-05 05:30 | NUR ---
AT APPROX 0430, PT HR JUMPED UP TO THE 160'S. EKG COMPLETED IN PT ROOM, INDICATING AFIB RVR. DR. HARRIS NOTIFIED, NEW ORDER RECEIVED FOR CARDIOLOGY CONSULT AND DIGOXIN LOADING DOSE. MEDICATION ADMINISTERED, AND CONSULT CALLED IN. AT 0520, SPOKE WITH DR. LINDER. NEW ORDERS RECEIVED, FOR AMIONADRONE BOLUS AND IV DRIP. MEDICATIONS ADMINSTERED, SEE EMAR FOR DOCUMENTATION. AT 0705, DR. LINDER NOTIFIED FOR PT SUSTAINING HR IN 140'S TO 160'S. NEW ORDER RECEIVED FOR DIGOXIN 0.25 MG X1 DOSE. SEE EMAR FOR DOCUMENTATION.
--- NOTE | 2018-03-05 08:00 | CON ---
[address] [address] CONSULTATION Name: MARGIE LEUNG SR Room: [address] IN .R.#: [id number] Admission: 03/03/18 Attend Phys: Ottoniel Eaton, Discharge: Date of : 41 Report #: [id number] THIS REPORT FOR: //name// CC: Evens Eaton DATE OF SERVICE: 03/04/2018 Infectious Disease Consultation ATTENDING PHYSICIAN: Ottoniel Eaton MD REASON FOR EVALUATION: Sepsis, complicated urinary tract infection, possible pneumonitis, as well as diarrhea. HISTORY OF PRESENT ILLNESS: Chart reviewed, patient examined. This is a 72-year-old whom I am familiar with. I saw him in September of this year with pneumonitis. He notably has recurrent urinary tract infections with suprapubic catheter. At that time, he had a left basilar cavitary pneumonia with air fluid level felt to be consistent with abscess. He is unable to give any details of the history apparently within the last couple of days. According to the emergency room report, he became more encephalopathic, was evaluated, and was felt to have a urinary tract infection, started on amoxicillin, in addition had some loose stools. He was evaluated in the emergency room, felt to have markedly elevated white count of 28.6 thousand. Lactic acid was 1.7, noted to have a creatinine of 2.2, total protein of 8.2 and albumin of 2.7. Suggest gammopathy. Chest x-ray showed changes in the left base. It is unclear if this is resolving abscess or some component of pneumonitis. Urinalysis interestingly had 0-5 white cells, 10-30 bacteria. He was put in the intensive care unit. He is on mild pressor support. He is quite confused. He was started empirically on therapy with levofloxacin and Zosyn. C. diff is in progress. Blood and urine cultures are pending. He is afebrile. ALLERGIES: LORAZEPAM. MEDICATIONS: Include enoxaparin, levofloxacin, thiamine, folic acid, norepinephrine, Zosyn. PAST MEDICAL HISTORY: As noted above, history of COPD, peripheral vascular disease. SOCIAL HISTORY: Former smoker. Regular beer drinker. FAMILY HISTORY: Noncontributory. REVIEW OF SYSTEMS: [place] [address] CONSULTATION Name: MARGIE LEUNG SR Room: [address]#: [id number] Admission: 03/03/18 Attend Phys: Ottoniel Eaton, Discharge: Date of : 41 Report #: [id number] PHYSICAL EXAMINATION: GENERAL: He appears chronically ill. He is moderately encephalopathic. I think it is probably acute on chronic issue, some delirium is not on skin. He is lying in primarily a right lateral decubitus position, appears chronically ill, undernourished. VITAL SIGNS: Temperature 99.8, pulse 82, respirations tachypneic. Blood pressure is 110/42. SKIN: Warm, dry, no rashes. HEENT: Nasal cannula oxygen in place. NECK: Supple. LUNGS: Scattered coarse breath sounds, diminished. HEART: Regular. There is soft systolic murmur. ABDOMEN: Soft, nontender, nondistended. SKIN: Suprapubic catheter in place. There are no overt peritoneal signs. GENITOURINARY: Deferred. RECTAL: Deferred. LABORATORY DATA: White count 20.6, H and H 10.9 and 33.6, platelets of 649, has some toxic granulation. Lactic acid 1.7. Electrolytes: Sodium 127, potassium 3.9, chloride 92, bicarbonate is 27, anion gap of 8, BUN and creatinine 46 and 2.2, glucose of 138. IMAGING DATA: Chest x-ray as noted above. Urinalysis is described above. Blood cultures sterile thus far. Influenza antigen was negative. ASSESSMENT: Encephalopathy. The patient with markedly elevated white count. I would be concerned about intraabdominal process. Await Clostridium difficile. I think it is reasonable to start empiric antimicrobial therapy with oral metronidazole. He was switched to cefepime. We will go ahead and get CT of the abdomen and pelvis. I am somewhat concerned about ischemic bowel as well. We will await pending studies and see how he does clinically. <ELECTRONICALLY SIGNED> By: Gil Moya MD 03/05/18 0800 1258 [id number] Moya MD /nt
--- NOTE | 2018-03-05 11:07 | EKG ---
[place] [address] ELECTROCARDIOGRAM REPORT Name: MARGIE LEUNG SR Room: [address] ADM IN M.R.#: [id number] Admission: 03/03/18 Attend Phys: Ottoniel Eaton, Discharge: Date of : 41 Report #: [id number] THIS REPORT FOR: //name// [facility] Test Date: 2018-03-05 Test Time: 04:45:42 Pat Name: MARGIE LEUNG Department: Room: [address] Gender: M [employer] Librarian: GUSTAVO : 1945 Requested By: Colt St Order Number: [id number] Smooth MD: Evens Hankins Measurements Intervals [place] Rate: 200 P: [place]: QRS: 95 QRSD: 107 T: 264 QT: 263 QTc: 480 Interpretive Statements Atrial fibrillation with rapid V-rate Right axis deviation Consider anterior infarct Repolarization abnormality, prob rate related Baseline wander in lead(s) I,II,III,aVR,aVF,V2,V3,V4,V5,V6 Compared to ECG 03/03/2018 18:51:54 Right-axis deviation now present Sinus rhythm no longer present Electronically Signed On 03-05-2018 11:07:10 CDT by Evens Hankins [email or web address] <ELECTRONICALLY SIGNED> By: Evens Hankins MD, [facility] 03/05/18 1107 0445 Evens Hankins MD, [facility] /EPI
--- NOTE | 2018-03-05 11:52 | NUR ---
PATIENT VERY VERBAL CO ALL THE NOISE. ADJUSTED ALARMS TO DECREASE STIMULI. STOPPED LEVOPHED AND AMIODARONE AFTER GIVING PO. PATIENT NOW IN A REGULAR RYTHM.
--- NOTE | 2018-03-05 13:44 | CON ---
[address] [address] CONSULTATION Name: MARGIE LEUNG SR Room: [address] IN .R#: [id number] Admission: 03/03/18 Attend Phys: Ottoniel Eaton, Discharge: Date of : 41 Report #: [id number] THIS REPORT FOR: //name// CC: Evens Eaton DATE OF SERVICE: 03/05/2018 CARDIOLOGY CONSULTATION HISTORY OF PRESENT ILLNESS: The patient is a 72-year-old single white male who I was asked to see in the hospital today after he was noted to be in atrial fibrillation. The history is obtained from the chart as well as the patient. There are no family members available. The patient was actually admitted here to [facility] in September with pneumonia. He apparently has had no history of heart disease. He has a history of alcohol-induced dementia. He lives by himself. He was admitted 2 days ago. His daughter noted he had been more confused and was placed on antibiotics recently. He was brought to the Emergency Room by his daughter in a wheelchair. He apparently had been coughing. He was felt to have a urinary tract infection and possibly septic. He was placed on IV pressors. The patient has been followed by my partner, Dr. Mcfadden for hypertension in the past. Previous stress test showed normal ejection fraction and no ischemia. He does have a history of COPD from heavy smoking and sleep apnea, uses CPAP. On admission, the patient was in sinus rhythm. However, last night, he went into atrial fibrillation with rapid ventricular response rate. He was started on IV diltiazem. I was asked to see him for further evaluation and treatment. He denies any recent chest pain, increased shortness of breath. He has been coughing. PAST MEDICAL HISTORY: Significant for hernia repair. He has a suprapubic catheter. He has a history of peripheral arterial disease. MEDICATIONS AT HOME: Consists of atenolol, losartan, DuoNeb treatments. ALLERGIES: He has an allergy to Ativan. FAMILY HISTORY: Negative for heart disease. 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 He is . Lives outside of [place], [place]. He quit smoking. He has a history of alcohol abuse. REVIEW OF SYSTEMS: There is no history of stroke. He has COPD. No history of peptic ulcer disease, liver disease, kidney disease, cancer or psychiatric illness. PHYSICAL EXAMINATION: [place] [address] CONSULTATION Name: MARGIE LEUNG Room: [address]#: [id number] Admission: 03/03/18 Attend Phys: Ottoniel Eaton, Discharge: Date of : 41 Report #: [id number] GENERAL: Revealed an elderly male, lying in bed, appeared in no acute distress. VITAL SIGNS: He has a blood pressure 120/60, pulse is 100 and irregular. He is afebrile. HEENT: He was anicteric. Conjunctivae pale. Mucous members are dry. NECK: Veins do not appear distended. CHEST: Revealed distant breath sounds. CARDIOVASCULAR: Irregular rhythm. ABDOMEN: Soft. EXTREMITIES: Had no edema. SKIN: Cool and dry. NEUROLOGIC: He moved all extremities. PSYCHIATRIC: Mood is appropriate. His ECG shows atrial fibrillation with a controlled ventricular response rate. Initial ECG showed sinus rhythm, no ST or T-wave changes. His workup, he had an echocardiogram in September that showed ejection fraction 60% with mild aortic stenosis and mild mitral regurgitation. His x-ray on admission showed pneumonia, left lower lobe granuloma. CT scan of the chest without contrast showed infiltrate left lower lobe, possible abscess, necrotic blebs. LABORATORY DATA: Sodium 130, creatinine 1.4, two days ago was 2.2. His albumin is only 1.7. Troponin is 0.1. BNP 5637. White blood cell count 27,000 and hemoglobin 8.9, it was 13.3 in September. IMPRESSION AND RECOMMENDATIONS: 1. Atrial fibrillation. I would check thyroid function studies. I would switch the amiodarone to oral amiodarone. The patient does not appear to be a very good candidate for anticoagulation because of his history of alcohol abuse and anemia. 2. Pneumonia. 3. History of alcohol abuse. 4. Alcoholic encephalopathy. 5. Chronic obstructive pulmonary disease. 6. History of tobacco abuse. 7. Suprapubic catheter. 8. Hypertension. The patient has been on a beta kai and ARB. <ELECTRONICALLY SIGNED> By: Evens Hankins MD, FACC 03/05/18 1344 1002 [id number] Hankins MD, FACC /nt
[2018-03-05 14:27] LABS: BE -4.4 mmol/L (-2 to +3); HCO3 19.6 mmol/L (22.0-26.0); PCO2 32.2 mmHg (35.0-45.0); PO2 92.4 mmHg (75.0-100.0); pH 7.403 (7.340-7.450)
--- NOTE | 2018-03-05 15:17 | NUR ---
PT ADMITTED OVER THE WEEKEND WITH SEPSIS, PNEUMONIA, UTI. PT HERE IN SEPTEMBER AND DISCHARGED TO HOME WITH [facility]. PT HAD HOME O2 AT CPAP FROM [facility] AT THAT TIME. PT'S DTR KENZIE GOMES (NICKI) IS HIS DPOA. CASE MGT WILL ASSESS AT LATER TIME.
--- NOTE | 2018-03-05 19:32 | NUR ---
patient to transfer to 208 report called to roberto hoffman rn
[2018-03-06] VITALS (7 sets, daily range): BP systolic 121–190; BP diastolic 56–84
[2018-03-06 04:30] LABS: HEMATOCRIT 28.1 % (42.0-52.0); HEMOGLOBIN 9.1 gm/dL (14.0-18.0); MCH 29.1 pg (26.0-34.0); MCHC 32.3 g/dL (28.0-37.0); MCV 90.2 fL (80.0-100.0); MPV 7.1 fl. (7.2-11.1); RBC 3.12 mil/uL (4.50-6.00); RDW-CV 12.8 % (10.5-14.5); WBC 28.2 thou/uL (4.0-11.0)
[2018-03-06 05:23] LABS: ALBUMIN 1.8 g/dL (3.4-5.0); CALCIUM 7.4 mg/dL (8.5-10.1); CREATININE 1.2 mg/dL (0.6-1.3); MAGNESIUM 2.2 mg/dL (1.8-2.4); POTASSIUM 4.1 mmol/L (3.5-5.1); TOTAL BILIRUBIN 0.3 mg/dL (<0.1-1.0); TOTAL PROTEIN 6.3 g/dL (6.4-8.2)
--- NOTE | 2018-03-06 07:36 | NUR ---
RECEIVED REPORT AND ASSUMED CARE AT 1950. PT TRASFERRED FROM ICU TO ROOM 208. VSS. CARDIAC MONITORING IN PLACE. PT ORIENTATED TO ROOM, CALL LIGHT, FALL POLICY. ASSESSMENT COMPLETED CHARTED. DISCUSSED PLAN OF CARE WITH PT, VERBALIZED UNDERSTANDING. MEDICATION ADMIN PER EMAR, BED LOCKED IN LOWEST POSITION, CALL LIGHT WITHIN REACH. HOURLY ROUNDING COMPLETED AND ALL NEEDS MET. WILL CONTINUE TO MONITOR
--- NOTE | 2018-03-06 10:23 | NUR ---
ASSUMED CARE OF PATIENT THIS AM AT 0730. PATIENT IS SLEEPING OFF AND ON THIS AM. HE C/O BEING COLD. HIS LUNG SOUNDS ARE DIMINISHED. PATIENT HAS A LOW GRADE TEMP. DR VÁSQUEZ IN TO ROUND AND NOTIFIED OF INCREASED TEMPERATURE. TELE SHOWS NSR. HOB ELEVATED TO 30 DEGREES. HE CONTINUES ON IV ANTIBIOTICS. IV FLUIDS DISCONTINUED PER ORDER. FAMILY IS IN AT THE BEDSIDE.
--- NOTE | 2018-03-06 10:50 | CON ---
[address] [address] CONSULTATION Name: MARGIE LEUNG SR Room: [address] IN .R.#: [id number] Admission: 03/03/18 Attend Phys: Ottoniel Eaton, Discharge: Date of : 41 Report #: [id number] THIS REPORT FOR: //name// CC: Evens Eaton PULMONARY CONSULTATION REFERRING PHYSICIAN: Ottoniel Eaton MD CHIEF COMPLAINT: Dyspnea. HISTORY OF PRESENT ILLNESS: The patient presented to the Emergency Room at the request of his daughter once again. He had been hospitalized here before as a result of family intervention. The patient apparently was not doing well at home, had recurrent episodes of confusion. He lives by himself, states that he is not sure why he was brought into the hospital, unable to provide any real significant history regarding his current admission to the hospital. His only complaint right now is that he is extremely cold requiring several blankets. He is not chilling nor has he had any diaphoresis. In addition, apparently he has been having quite a bit in the way of loose stools. He was evaluated and then admitted to the ICU. He has had lab work, CTs of the chest and chest x-ray. PAST MEDICAL HISTORY: Significant for suprapubic catheter, insertion of a chronic nature, unclear reason as to why that has been put in. 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 He was hospitalized back in September for that condition. He has had inguinal hernia repair. He is alcoholic. He has not drank in some time. He has a history of COPD, recurrent urinary tract infections and peripheral vascular disease. SOCIAL HISTORY: He lives by himself. He is a prior smoker, was smoking 3 packs per day at one time in his life, unable to tell me how long he had been a smoker. He has also been an alcoholic or at least a heavy alcohol consumer. He has not had a alcohol beverage in some time according to the patient. ALLERGIES: None known. REVIEW OF SYSTEMS: System review negative other than what is outlined above. FAMILY HISTORY: Noncontributory for his age. PAST SURGICAL HISTORY: His prior surgeries consist of hernia repair and suprapubic catheter insertion. CURRENT MEDICATIONS: Here in the hospital consist of digoxin, [place] [id number] CONSULTATION Name: MARGIE LEUNG SR Room: [address]#: [id number] Admission: 03/03/18 Attend Phys: Ottoniel Eaton, Discharge: Date of : 41 Report #: [id number] treatments, amiodarone, subcutaneous Lovenox, metronidazole, cefepime. PHYSICAL EXAMINATION: VITAL SIGNS: Blood pressure 125/62, respiratory rate is 35. A repeat respiratory rate at the bedside was in the 20s. Pulse rate 85 and monitor strip shows a sinus rhythm. Temperature 98.6, weight 139 pounds. GENERAL APPEARANCE: Awake, alert, oriented. HEENT: Oral cavity: Poor dentition. No upper teeth. Mucous membranes moist. Head: Atraumatic. Eyes: Pupils are round, equal, and reactive. NECK: No adenopathy or JVD. CHEST: He has crackles in the bases, greater on the left than the right. Diminished breath sounds, a few rhonchi. CARDIOVASCULAR: Regular rhythm. Very soft 1-2/6 systolic murmur along the lower left sternal border radiating to the apex. ABDOMEN: Soft. EXTREMITIES: Without edema. SKIN: Warm, dry. He has a Flexi-Seal rectal catheter and suprapubic catheter. No rash effect. LABORATORY DATA: Sodium 130, potassium 3.6, chloride 99, CO2 of 24, BUN of 18, creatinine 1.4, EGFR 50. ProBNP 5637. Lactic acid on admission was 1.7. Hemoglobin and hematocrit today 8.9 and 27, white count 27,500, platelet count 443,000. CRP back in 09/2017 was 239. Back in 09/2017, T-SPOT TB test was negative. Blood cultures no growth in the last [address] of the chest revealed a cavitary lesion in the left lower lung, left upper lobe, lingula segment infiltrate. The cystic lesion in the left lingula measures 4.6 x 3.7 in diameter. The cystic lesion in the costophrenic angle measuring 3.5 x 2.6 cm as well. Emphysematous changes are noted. CT of the abdomen showed scattered fluid throughout the bowel related to enteritis, most likely fatty infiltration of the liver. There is cholelithiasis. ASSESSMENT: 1. Chronic obstructive airways disease. 2. Cavitary lung disease. 3. Pulmonary infiltrates. 4. History of tobacco abuse. 5. Alcoholism. 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 RECOMMENDATION: Aspiration precautions. Continue antibiotic coverage. Would recommend proceeding with bronchoscopy examination in the next few days. We will present this to the patient, not sure based on his level of mental capacity whether he would be capable to understand this, but we will discuss it with him and with his family when they become available as well. If not, I can always [address] [address] CONSULTATION Name: MARGIE LEUNG SR Room: [address] IN ..#: [id number] Admission: 03/03/18 Attend Phys: Ottoniel Eaton, Discharge: Date of : 41 Report #: [id number] contact them by phone. I am thinking about attempting to proceed with this at least on of this week. <ELECTRONICALLY SIGNED> By: Dennis Dowling MD 03/06/18 1050 1135 [id number] Dowling MD /nt
--- NOTE | 2018-03-06 12:04 | NUR ---
Pt is A&O, possibly some confusion. Dtr at bedside and assists with hx. Dtr states that Pt has been doing fairly well at home, stated that as long as he is healthy, he does fine. Dtr stated that they started noticing that Pt's mentation was off, approx 1 week ago. Pt resides at home alone. Supportive children that assist him as needed. Dtr Amanda assists with IADLS as needed. Pt has home o2 through [employer], dtr noted that Pt does not use it very often. Pt also has home o2. Per puljazmine, possible bronch on . Per dtr, goal is for Pt to return home. Therapies working with Pt. Family to discuss skilled, if the need arises. Following.
--- NOTE | 2018-03-06 17:12 | EKG ---
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: : 1945 Requested By: Evens Hankins Order Number: [id number] Smooth MD: Evens Hankins Measurements Intervals [place] Rate: 74 P: 44 [place]: 150 QRS: 86 QRSD: 94 T: 31 QT: 413 QTc: 459 Interpretive Statements Sinus rhythm Borderline right axis deviation Abnormal R-wave progression, late transition Baseline wander in lead(s) II,III,aVF Compared to ECG 03/05/2018 04:45:42 Atrial fibrillation no longer present Early repolarization no longer present Electronically Signed On 03-06-2018 17:12:40 CDT by Evens Hankins [email or web address] <ELECTRONICALLY SIGNED> By: Evens Hankins MD, [facility] 03/06/18 1712 09 Evens Hankins MD, [facility] /EPI
[2018-03-07 04:00] VITALS: BP 163/88
--- NOTE | 2018-03-07 08:22 | NUR ---
RECEIVED REPORT AND ASSUMED CARE AT 1900. VSS. CARDIAC MONITORING IN PLACE. PT DENIES ANY COMPLAINTS OF PAIN. ASSESSMENT COMPLETED CHARTED. DISCUSSED PLAN OF CARE WITH PT, VERBALIZED UNDERSTANDING. PT IS CONUSED OFTEN AND NEEDS REMINDERS. MEDICATION ADMIN PER EMAR. AROUND 2004 PT WENT INTO A-FIB HR=90-130, CONVERTED BACK TO SR HR=70 AT 2200. PHYSICIAN NOTIFIED, PRN ORDER RECEIVED. AFIB HR = 120-130 AROUND 2340. EKG OBTAINED AND PLACED IN CHART. HOB ELEVATED THROUGHOUT SHIFT, POSITION CHANGE ENCOURAGED AND PT EDUCATED ON RISK OF NOT OFFLOADING. PT DOES TURN HIMSELF OFTEN IN BED. BED LOCKED IN LOWEST POSITION, CALL LIGHT WITHIN REACH, BED ALARM ON. HOURLY ROUNDING COMPLETED AND ALL NEEDS MET. NURSING WILL CONTINUE TO MONITOR
[2018-03-07 08:28] VITALS: BP 126/49
[2018-03-07 11:36] VITALS: BP 131/63
--- NOTE | 2018-03-07 15:23 | NUR ---
PT HAD INDWELLING ALTEPLACE IN LINE FOR 1.25 HOURS IN THE WHITE LUMEN OF TRIPLE LUMEN PICC PLACED IN RIJ SITE. ABLE TO DRAW 7ML BLOOD RETURN BACK FROM LINE AT THIS TIME. LINE FLUSHED WITH 20ML OF SALINE AFTER 7 ML OF BLOOD WASTE. NEW POSI-FLOW CAP PLACED ON LINE AND PT RESTING AT THIS TIME. WILL CONTINUE TO MONITOR AND ASSESS
[2018-03-07 15:37] VITALS: BP 108/70
[2018-03-07 16:25] VITALS: BP 131/63
--- NOTE | 2018-03-07 17:12 | NUR ---
PT VSS THIS SHIFT. PT HAS BEEN SR THIS SHIFT ON THE MONITOR. DISCUSSED WITH CARDIOLOGY REGARDING PT AFIB EVENT LAST NIGHT AND THEY STATED THAT SINCE HE HAS BEEN ON CARDIAC MEDICATIONS FOR A FEW DAYS THEY ARE FINE WITH HIM BEING TRANSFERED TO MED/SURG AT THIS TIME. PT HAS CONFUSION AND AGITATION IN THE EVENING AND HIS DAUGHTER DISCUSSED CONCERNS REGARDING THE CLOTH PAINTER EFFECTS OF THE KLONIPIN AND ATIVAN. THIS WAS DISCUSSED WITH DR VÁSQUEZ EARLIER IN THE SHIFT AND SHE STATED THAT THE PT NEEDS SOMETHING TO KEEP HIM CALM DURING THE EVENING SHIFT. PT TOLERATING SUPRAPUBIC CATHETER AND HAS A RECTAL TUBE IN PLACE AT THIS TIME. PT NOTIFIED HE WAS GOING TO BE TRANSFERRED TO ANOTHER ROOM. PT PROVIDED WITH ALTEPLACE IN ONE OF HIS LUMENS OF HIS CENTRAL LINE, THE LINE IS WORKING WELL NOW AND IS DRAWING BLOOD WITH NO CONCERNS AT THIS TIME. PT TO BE TRANSFERED TO ROOM 110. WILL CALL REPORT SOON POSSIBLE.
--- NOTE | 2018-03-07 18:53 | EKG ---
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: [facility] : 1945 Requested By: Abel Valentine Order Number: [id number] Smooth MD: Evens Hankins Measurements Intervals [place] Rate: 119 P: ME: QRS: 86 QRSD: 91 T: 4 QT: 355 QTc: 500 Interpretive Statements Atrial flutter with predominant 2:1 AV block Borderline right axis deviation Repol abnrm suggests ischemia, inferior leads Compared to ECG 03/06/2018 09:10:26 2:1 AV block now present Early repolarization now present Possible ischemia now present Sinus rhythm no longer present Electronically Signed On 03-07-2018 18:53:33 CDT by Evens Hankins [email or web address] <ELECTRONICALLY SIGNED> By: Evens Hankins MD, FACC 03/07/18 1853 0009 0009 Evens Hankins MD, FAC /EPI
--- NOTE | 2018-03-07 19:15 | NUR ---
RN RESUMED CARE OF PT THIS EVENING AT 1800 AND PT TX TO 110. PT STABLE AT TIME OF TX. DENIES PAIN. SLEEPING BETWEEN CARE. FAMILY AT BEDSIDE. DAUGHTER ASKS THAT PT NOT RECEIVE ANY KLONOPIN TONIGHT IT MAKES PT "APPEAR DRUNK". PT AND FAMILY DENY ANY FURTHER QUESTIONS/CONCERNS AT THIS TIME.
[2018-03-07 20:30] VITALS: BP 151/83
[2018-03-07 21:43] LABS: TROPONIN-I LEVEL 0.13 ng/mL (<0.06)
--- NOTE | 2018-03-07 22:55 | NUR ---
INITAL ASSESSMENT PTS HR 130S RR 28. FAMILY HAD BEEN AMBULATING PT IN [place]. WAITED A FEW MIN TO SEE IF HR CAME DOWN AND IT HAD INCREASED TO 140'S RR 40S. PT STATED I CAN'T BREATHE. RAPID RESPONCE TEAM NOTIFIED. DR JOHN NOTIFIED. LASIX, METOPROLOL, LABS AND CXRAY ORDERED. 12 LEAD EKG SHOWED AFIB RVR. ORDER TO TRANSFER TO [facility] WHERE PT CAN BE PLACED ON TELEMETRY.
[2018-03-08] VITALS: BP 114/61
--- NOTE | 2018-03-08 06:15 | NUR ---
PATIENT WAS TRANSFERRED FROM ROOM 110 ABOUT 2300. AGREE WITH SHIFT ASSESSMENT. PATIENT WAS PLACED ON MONITOR HR HAS BEEN 70'S TO 80'S SINUS RHYTHM ON THE MONITOR. PATIENT IS ON OXYGEN AT 2L PER NASAL CANNULA. FECAL TUBE AND SUPRAPUBIC CATH REMAINS IN PLACE. WILL CONTINUE TO MONITOR.
[2018-03-08 06:39] LABS: HEMATOCRIT 27.8 % (42.0-52.0); HEMOGLOBIN 9.1 gm/dL (14.0-18.0); MCH 28.9 pg (26.0-34.0); MCHC 32.7 g/dL (28.0-37.0); MCV 88.4 fL (80.0-100.0); MPV 7.1 fl. (7.2-11.1); RBC 3.14 mil/uL (4.50-6.00); WBC 16.1 thou/uL (4.0-11.0)
[2018-03-08 07:14] LABS: ALBUMIN 1.8 g/dL (3.4-5.0); CALCIUM 7.5 mg/dL (8.5-10.1); CREATININE 1.5 mg/dL (0.6-1.3); MAGNESIUM 1.4 mg/dL (1.8-2.4); TOTAL BILIRUBIN 0.4 mg/dL (<0.1-1.0); TOTAL PROTEIN 6.4 g/dL (6.4-8.2)
[2018-03-08 07:19] LABS: POTASSIUM 2.8 mmol/L (3.5-5.1)
[2018-03-08 09:27] VITALS: BP 132/59
[2018-03-08 11:34] VITALS: BP 117/42
--- NOTE | 2018-03-08 15:42 | EKG ---
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: [place] : 1945 Requested By: Ottoniel Eaton Order Number: [id number] Reading MD: Jose Mcfadden Measurements Intervals [place] Rate: 133 P: [place]: QRS: 84 QRSD: 94 T: -74 QT: 351 QTc: 523 Interpretive Statements Atrial flutter with 2:1 AV block Borderline right axis deviation Nonspecific ST segment depression Prolonged QT interval Compared to ECG 03/07/2018 00:09:31 Prolonged QT interval now present Electronically Signed On 03-08-2018 15:42:51 CDT by Jose Mcfadden [email or web address] <ELECTRONICALLY SIGNED> By: Jose Mcfadden MD, FACC 03/08/18 1542 10 10 Jose Mcfadden MD, FAC /EPI
--- NOTE | 2018-03-08 15:43 | EKG ---
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[place] : 1945 Requested By: Ottoniel Eaton Order Number: [id number] Reading MD: Jose Mcfadden Measurements Intervals [place] Rate: 101 P: [place]: QRS: 55 QRSD: 92 T: 4 QT: 364 QTc: 472 Interpretive Statements Atrial flutter with predominant 3:1 AV block Premature ventricular contraction Compared to ECG 03/07/2018 00:09:31 AV block, advanced (high-grade) now present Ventricular premature complex(es) now present Early repolarization no longer present Electronically Signed On 03-08-2018 15:43:20 CDT by Jose Mcfadden [email or web address] <ELECTRONICALLY SIGNED> By: Jose Mcfadden MD, FACC 03/08/18 1543 33 Jose Mcfadden MD, FAC /EPI
--- NOTE | 2018-03-08 18:00 | NUR ---
PATIENT HAS BEEN ALERT PART OF THE DAY, DID GET UP AND SHOWER TODAY. PATIENT HAS HAD A POOR APPETITE EVEN WITH ENCOURAGEMENT. VITAL SIGNS HAVE BEEN STABLE ON 2 LITERS OF OXYGEN, HELD AFTERNOON METOPROLOL DUE TO LOW BLOOD PRESSURE AND HEART RATE. FECAL TUBE REMOVED TODAY RAMON STILL IN PLACE. CALL LIGHT IS IN REACH, BED ALARM IS ON. WILL CONTINUE TO MONITOR.
[2018-03-08 21:29] LABS: CALCIUM 7.7 mg/dL (8.5-10.1); CREATININE 1.4 mg/dL (0.6-1.3); POTASSIUM 3.6 mmol/L (3.5-5.1)
[2018-03-09] VITALS: BP 123/54
[2018-03-09 04:00] VITALS: BP 121/41
[2018-03-09 05:54] LABS: HEMATOCRIT 26.2 % (42.0-52.0); HEMOGLOBIN 8.7 gm/dL (14.0-18.0); MCH 29.5 pg (26.0-34.0); MCHC 33.3 g/dL (28.0-37.0); MCV 88.7 fL (80.0-100.0); MPV 7.2 fl. (7.2-11.1); RBC 2.95 mil/uL (4.50-6.00); WBC 12.2 thou/uL (4.0-11.0)
[2018-03-09 06:14] LABS: ALBUMIN 1.8 g/dL (3.4-5.0); CALCIUM 7.7 mg/dL (8.5-10.1); CREATININE 1.4 mg/dL (0.6-1.3); MAGNESIUM 1.5 mg/dL (1.8-2.4); POTASSIUM 3.6 mmol/L (3.5-5.1); TOTAL BILIRUBIN 0.4 mg/dL (<0.1-1.0); TOTAL PROTEIN 6.3 g/dL (6.4-8.2)
--- NOTE | 2018-03-09 06:21 | NUR ---
PATIENT SLEPT MOST OF THE NIGHT. CENTRAL LINE REMAINS SALINE LOCKED. IV ANTIBIOTICS WERE GIVEN SCHDEULED. PATIENT REMAINS ON OXYGEN AT 2L PER NASAL CANNULA. PATIENT HAS BEEN SINUS RHYTHYM ON THE MONITOR. WILL CONTINUE TO MONITOR.
[2018-03-09 09:30] VITALS: BP 123/46
[2018-03-09 12:10] VITALS: BP 145/59
--- NOTE | 2018-03-09 17:40 | NUR ---
PATIENT UP TO CHAIR THIS AM AND SHOWERED. IV ABX CHANGED TO PO PER ID THIS SHIFT. [address] PATIENT HAVING LOOSE STOOLS. PATIENT REFUSING TO GET UP AND GO INTO BATHROOM WITH ASSISTANCE, PATIENT KEEPS STATING "I NEED A PAPER TO SHIT ON." PATIENT INFORMED THAT WHEN HE KNOWS HE HAS TO HAVE A BM THAT HE NEEDS TO CALL THIS NURSE AND WILL ASSIST TO BATHROOM. PATIENT CONTINUED ASKING FOR PAPER. WILL REPLACE FECAL TUBE IF NEED BE, OK PER DR. KEEN. MG REPLACED PER PROTOCOL, REDRAW THIS EVENING. PATIENT REFUSING TO MOST MEALS, WILL DRINK ENSURE AT TIMES.
[2018-03-10 01:25] VITALS: BP 125/43
--- NOTE | 2018-03-10 03:23 | NUR ---
ASSESSMENT: PT REMAIN ALERT AND ORIENT TIMES THREE. FORGETFUL AND NOT FULLY GRASPING SITUATION. PT C/O "HIS NUTS" HURTING. PT'S SCROTAL AREA IS RED/EXCORIATED. ZINC CREAM APPLIED AND TYLENOL GIVEN. PT STATES THAT THE CREAM "DOESN'T DO A DAMN THING". THEN LATER STATES, "IT FEELS BETTER, BUT IS SORE TO TOUCH AT FIRST". PT COULD POSSIBLY BENEFIT FROM AN ORDER OF NYSTATIN POWDER, WILL BRING TO THE DAY SHIFT RN. PT'S DAUGHTER/FRIEND WERE AT THE BEDSIDE FOR A SHORT TIME EARLIER DURING THE SHIFT. DAUGHTER STATES THAT THE PT IS NOT AT HIS BASE LINE (MENTALLY) AND THAT HE SEEMS A LITTLE CONFUSED TO WHATS GOING ON. BED ALARM SET AND FREQUENT REORIENTATION PROVIDED. PT LIKES TO LAY IN THE PRONE POSITION, TAKES HIS TIME TURNING ON SIDE OR SUPINE TO RECIEVE CARE. SR PER MONITOR. VSS, AFEBRILE. SLOW PROGRESS TOWARDS DC GOALS, WILL CONTINUE TO MONITOR.
[2018-03-10 03:44] LABS: HEMATOCRIT 27.2 % (42.0-52.0); HEMOGLOBIN 8.8 gm/dL (14.0-18.0); MCH 28.8 pg (26.0-34.0); MCHC 32.4 g/dL (28.0-37.0); MCV 88.8 fL (80.0-100.0); MPV 7.2 fl. (7.2-11.1); RBC 3.06 mil/uL (4.50-6.00); RDW-CV 13.1 % (10.5-14.5); WBC 12.5 thou/uL (4.0-11.0)
[2018-03-10 04:15] LABS: ALBUMIN 1.8 g/dL (3.4-5.0); ALKALINE PHOSPHATASE 56 U/L (46-116); ANION GAP 5 mmol/L (7-16); BUN 19 mg/dL (7-18); CALCIUM 7.4 mg/dL (8.5-10.1); CHLORIDE 99 mmol/L (98-107); CO2 30 mmol/L (21-32); CREATININE 1.3 mg/dL (0.6-1.3); GLUCOSE 99 mg/dL (70-99); MAGNESIUM 1.3 mg/dL (1.8-2.4); SGOT 14 U/L (15-37); SGPT 8 U/L (30-65); SODIUM 134 mmol/L (136-145); TOTAL BILIRUBIN 0.4 mg/dL (<0.1-1.0); TOTAL PROTEIN 6.4 g/dL (6.4-8.2); TROPONIN-I LEVEL <0.06 ng/mL (<0.06)
[2018-03-10 08:00] VITALS: BP 122/61
[2018-03-10 16:00] VITALS: BP 118/50
[2018-03-11] VITALS: BP 127/46
[2018-03-11 04:00] VITALS: BP 138/63
--- NOTE | 2018-03-11 06:47 | NUR ---
ASSESSMENT: PT REMAIN ALERT AND ORIENT TIMES THREE. BOUTS OF FORGETFULNESS R/T PAST ETOH ENCEPHLOPATHY. EASY TO REORIENT. C/O SOB AND WONDERING IF OXYGEN WILL RUN OUT OF WALL SUPPLY. REASSURANCE PROVIDED. SR PER MONITOR. VSS, AFEBRILE. INCONT BOWEL AND BLADDER. SUPERPUBIC CATH PATENT. SLOW PROGRESS, WILL CONTINUE TO MONITOR.
[2018-03-11 08:37] VITALS: BP 126/67
[2018-03-11 12:00] VITALS: BP 121/57
[2018-03-11 15:46] VITALS: BP 133/52
[2018-03-11 19:20] VITALS: BP 111/56
[2018-03-12] VITALS (7 sets, daily range): BP systolic 104–158; BP diastolic 48–66
[2018-03-12 04:17] LABS: HEMATOCRIT 28.7 % (42.0-52.0); HEMOGLOBIN 9.5 gm/dL (14.0-18.0); MCH 29.4 pg (26.0-34.0); MCHC 33.2 g/dL (28.0-37.0); MCV 88.5 fL (80.0-100.0); MPV 7.4 fl. (7.2-11.1); RBC 3.24 mil/uL (4.50-6.00); RDW-CV 13.1 % (10.5-14.5); WBC 13.2 thou/uL (4.0-11.0)
[2018-03-12 04:45] LABS: ALBUMIN 1.9 g/dL (3.4-5.0); CALCIUM 7.7 mg/dL (8.5-10.1); CREATININE 1.4 mg/dL (0.6-1.3); MAGNESIUM 2.3 mg/dL (1.8-2.4); POTASSIUM 4.5 mmol/L (3.5-5.1); TOTAL BILIRUBIN 0.3 mg/dL (<0.1-1.0); TOTAL PROTEIN 6.9 g/dL (6.4-8.2)
--- NOTE | 2018-03-12 13:07 | NUR ---
SALINA called and spoke with pt dtr Amanda regarding dc planning. Amanda said that pt/pt family considering SNF due to pt weakness and that the family would not be able to provide 24 hr care. Pt family preference for [place]; SALINA sent referral for SNF to [facility] and will continue to follow to assist with safe dc planning.
--- NOTE | 2018-03-12 18:38 | NUR ---
RESUMED CARE THIS AM, PATIENT CONT TO REQUIRE FREQUENT REDIRECTION, CONT TO TO BE VERBALLY BELIDGERANT TO STAFF, REFUSING THERAPIES AT TIMES. PREFERS TO REMAIN IN BED, REFUSES TO EXIT BED, REFUSES TO EAT, WIPES FECES OFF BUTTOCKS WITH PAPER TOWELS, SLINGS TOWELS ON FLOOR AND IN TOILET, COUGHS UP SPUTUM, SPITS IT ON FLOOR. PLAN OF CARE REVIEWED WITH PATIENT AND HIS FAMILY, NO QUESTIONS AT THIS TIME, CONT POC.
[2018-03-13 04:00] VITALS: BP 120/40
--- NOTE | 2018-03-13 05:27 | NUR ---
PT SLEPT WELL OVERNIGHT, AWAKENS EASILY WITH CARES. UP WITH SBA TO BATHROOM TO VOID AND HAVE BM OVERNIGHT. SUPRAPUBIC CATH DRAINING YELLOW URINE. O2 2L OVERNIGHT TO KEEP SATS >92%. NEIR MARMOLEJO. TELE SR. MUCINEX AND TESSALON SELAM GIVEN FOR LOOSE COUGH WITH GOOD RESULT. PT CAN BE FUSSY AND IRRITABLE WITH CARES BUT WITH ENCOURAGEMENT HAS COOPERATED WITH CARES THIS SHIFT. TAKES PILLS ONE AT A TIME WHOLE WITH WATER. PT PREFERS R SIDE SLEEPING, TURNS AND REPOSITIONS SELF AT TIMES WITH ENCOURAGEMENT. RYLEY AREA REMAINS RED, EXCORIATED,RYLEY CARE GIVEN AND ANTIFUNGAL CREAM APPLIED. POSSIBLE DC TODAY TO SNF. CALL LITE IN EASY REACH, PT ABLE TO USE CALL LITE AND MAKE NEEDS KNOWN. BED ALARM ON FOR SAFETY.
[2018-03-13 07:55] VITALS: BP 120/48
[2018-03-13] MEDS ORDERED: PROTONIX 20 MG20 M1 PO (10:38)
[2018-03-13] MEDS ORDERED: LEVALBUTER1.25 MG/0. INH (10:38)
[2018-03-13] MEDS ORDERED: DIGOXIN250 MCG PO (10:38)
[2018-03-13] MEDS ORDERED: VITAMIN B-1100 M1 PO (10:38)
[2018-03-13] MEDS ORDERED: TOPROL XL100 MG PO (10:38)
[2018-03-13] MEDS ORDERED: LASIX 40 MG TAB40 M1 PO (10:38)
[2018-03-13] MEDS ORDERED: LEVAQUIN 500 M500 M1 PO (10:38)
[2018-03-13] MEDS ORDERED: BENZONATATE100 MG PO (10:38)
[2018-03-13] MEDS ORDERED: SEROQUEL 25 MG25 M1 PO (10:38)
[2018-03-13] MEDS ORDERED: PACERONE 200 M200 M1 PO (10:38)
[2018-03-13] MEDS ORDERED: MUCINEX600 MG PO (10:38)
[2018-03-13] MEDS ORDERED: FOLIC ACID1 MG PO (10:38)
--- NOTE | 2018-03-13 10:54 | NUR ---
SALINA followed up with [facility] admissions and provided information that rectal tube was removed on 03/08. They accepted pt and are submitting for insurance authorization; they will contact SALINA when they receive final approval to be able to accept pt for SNF. SALINA to continue to follow.
[2018-03-13 12:00] VITALS: BP 120/64
[2018-03-13 16:00] VITALS: BP 127/44
--- NOTE | 2018-03-13 18:18 | NUR ---
PATIENT A&OX4, FORGETFUL. ROOM AIR, 2L O2 VIA NC AT HS. IV RIGHT IJ TRIPPLE LUMEN SALINE LOCK. UP WITH STAND BY ASSIST, STEADY GAIT. SUPRAPUBIC CATHETER IN PLACE FOR RETENTION, NEEDS TO BE CHANGED PRIOR TO DISCHARGE. REDNESS NOTED TO BOTTOM AND RYLEY AREA, BAREER CREAM APPLIED. NO OTHER CONCERNS AT THIS TIME. APPROPRIATE AND COOPORATIVE WITH CARE.
[2018-03-13 19:45] VITALS: BP 117/48
[2018-03-14 00:23] VITALS: BP 125/54
[2018-03-14 04:13] VITALS: BP 145/64
--- NOTE | 2018-03-14 05:40 | NUR ---
PT SLEPT WELL OVERNIGHT. DENIES PAIN OR PROBLEMS. OCC LOOSE COUGH HEARD, TESSALON SELAM GIVEN WITH GOOD RESULT. RIFilipe SL. SUPRAPUBIC CATH DRAINING YELLOW URINE, TO BE CHANGED BEFORE DISCHARGE HOME TODAY. O2 2L OVERNIGHT. VSS. ANTIFUNGAL CREAM APPLIED TO PT RYLEY AREA,PT STATES ITS A LITTLE SORE AND APPEARS PINK. NO BM THIS SHIFT. ABLE TO USE CALL LITE AND MAKE NEEDS KNOWN.BED ALARM ON OVERNIGHT FOR SAFETY. TELE SR. RT TX GIVEN SCHEDULED.
[2018-03-14 08:50] VITALS: BP 120/43; BP 131/63
[2018-03-14 09:59] VITALS: BP 120/43
[2018-03-14] MEDS ORDERED: LEVAQUIN 500 M500 M3 PO (10:14)
[2018-03-14] MEDS ORDERED: ASPIRIN325 PO (10:14)
[2018-03-14] MEDS ORDERED: K-DUR 20 MEQ T20 MEQ PO (10:31)
--- NOTE | 2018-03-14 10:34 | NUR ---
SALINA followed up with safe dc planning with pt and pt dtr. Plan for pt to dc home with dtr and in home assistance today and family support as well as continued 24/7 assist at home. Pt has needed DME at home including nebulizer. No other needs expressed. [facility]INA called [facility] and updated that pt will be dc home today and no longer needs the SNF bed at this time.
[2018-03-14] MEDS ORDERED: PRENATAL TABLE1 EAC2 PO (11:49)
[2018-03-14] MEDS ORDERED: ATENOLOL 100MG100 MG PO (11:53)
--- NOTE | 2018-03-14 12:45 | NUR ---
PATIENT DISCHARGED TO HOME. DISCHARGE PAPERS REVIEWED AND SIGNED. PATIENT REFUSED HOME HEALTH. FAMILY SET UP CAREGIVERS INDEPENDENTLY. PRESCRIPTIONS AND INFORMTION SHEETS GIVEN. IJ REMOVED, PRESSURE HELD X 5 MINUTES AND PRESSURE DRESSING APPLIED. PATIENT AND DAUGHTER INSTRUCTED TO LEAVE BANDAGE ON X 24 HRS. SUPRAPUBIC CATHETER CHANGED ORDERED. PATIENT DENIES ANY FURTHER NEEDS. PATIENT TAKEN BY WHEELCHAIR TO EXIT. LEFT WITH DAUGHTER.
--- NOTE | 2018-03-22 13:22 | CON ---
[address] [address] CONSULTATION Name: MARGIE LEUNG SR Room: [address] IN .R.#: [id number] Admission: 03/03/18 Attend Phys: Ottoniel Eaton, Discharge: 03/14/18 Date of : 41 Report #: [id number] THIS REPORT FOR: //name// CC: Evens Eaton DATE OF SERVICE: 03/05/2018 HISTORY OF PRESENT ILLNESS: A pleasant 72-year-old male, with history of dementia and pneumonia, pulmonary abscess, chronic kidney disease, iron deficiency anemia and septic shock, who has been consulted for iron deficiency anemia. The history has been obtained from the daughter as the patient has baseline of dementia and appears to be encephalopathic at this time. The patient's daughter reports that he lives alone and is able to take care of himself at home except when he is sick. The patient was brought in by his daughter because the patient appeared to be more confused than usual and this usually happens when he is infected. Over the course of admission in the last couple of days, the patient has been diagnosed with urinary tract infection and a cavitary pulmonary abscess, and he is in the ICU on pressor support and antibiotic coverage. The GI service has been consulted for evaluation of possible iron deficiency anemia. The patient's daughter does not recollect any history of hematemesis, hematochezia or melena; however, the patient never had a colonoscopy before and to the best of her knowledge, never had an upper GI endoscopy either. The patient never complained of any abdominal pain, nausea, vomiting or change in bowel habits. PAST MEDICAL HISTORY: The patient has history of recurrent urinary tract infections and prostatic hypertrophy, suprapubic catheter placement. Also, has a history of COPD. PAST SURGICAL HISTORY: Suprapubic catheter placement. SOCIAL HISTORY: The patient quit smoking 14 years back, but prior to that was a pack-a-day smoker. The patient was also previously an alcoholic, but he quit when his daughter was 8 years old and then resumed drinking in 2013 and continued heavy drinking until October 2017 following which he again quit and the daughter has been giving him nonalcoholic beer for recreational purposes. FAMILY HISTORY: Reviewed and nonsignificant. REVIEW OF SYSTEMS: Unable to obtain due to the patient's mental status. PHYSICAL EXAMINATION: GENERAL: The patient is awake. He is able to recognize [place], [place] [address] CONSULTATION Name: MARGIE LEUNG Room: [address]#: [id number] Admission: 03/03/18 Attend Phys: Ottoniel Eaton, Discharge: 03/14/18 Date of : 41 Report #: [id number] otherwise not oriented to time or place. HEENT: Pupils are equal, round, reactive to light and accommodation. Mucous membranes are moist. There is no congestion. NECK: There is no supraclavicular lymphadenopathy. LUNGS: Absent breath sounds on the left side. CARDIOVASCULAR: Rate and rhythm regular, S1, S2 present. There are no murmurs, rubs or gallops. ABDOMEN: Soft, no distention, no tenderness. No organomegaly. RECTAL: There is a rectal tube in place. Dark brown stool noted in the rectal tube. EXTREMITIES: Warm, well perfused. There is no edema. SKIN: Warm and dry. LABORATORY DATA: WBC count 27.5, hemoglobin 8.9, hematocrit 27.4, platelet count 443. Sodium 130, potassium 3.6, chloride 99, bicarbonate 24, BUN 18, creatinine 1.4. AST 16, ALT 16, alkaline phosphatase 58, total bilirubin 0.3. Abdomen CT without IV contrast, scattered fluild throughout bowel, possibly diarrhea or enteritis. Fatty infiltration of liver. Cholelithiasis. Gallbladder is nondistended without inflammatory change. ASSESSMENT AND PLAN: A 72-year-old male, with history of dementia, recurrent urinary tract infection, status post suprapubic catheter placement, presented with pneumonia and pulmonary abscess. Gastroenterology service has been consulted for evaluation of possible iron deficiency anemia. Since the patient never had a colonoscopy, I did offer the patient a one-time screening to rule out colon cancer. However, this does not need to be done at this time and can be done when the patient is more stable and on the floor prior to discharge. We will see the patient again once he is more stable. Please call gastroenterology with any questions. <ELECTRONICALLY SIGNED> By: Maykel Manuel MD 03/22/18 1322 [id number] Manuel MD /nt
== END 2018-03-14 12:45 | disposition home or self-care (01) | DRG 698 ==
LOC: M.ERS 18:43 → M.ICU 20:17 → M.TBA-ER 20:17 → M.2W 20:54 → M.TBA-ER 20:54 → M.ICU 21:53 → M.2W 03-05 20:00 → M.ORTHSURG 03-07 18:23 → M.3W 03-07 23:29
PROVIDERS: Emergency Medicine; Internal Medicine; Internal Medicine Pulmonary Disease; ADMIT Family Medicine
PROC: 02HV33Z Insertion of Infusion Device into Superior Vena Cava, Percutaneous Approach (ICD-10-PCS; principal; 2018-03-03)
DX: T83.518A Infection and inflammatory reaction due to other urinary catheter, initial encounter (principal); A41.9 Sepsis, unspecified organism; E43 Unspecified severe protein-calorie malnutrition; J96.01 Acute respiratory failure with hypoxia; R65.20 Severe sepsis without septic shock; G92 Toxic encephalopathy; J85.1 Abscess of lung with pneumonia; N39.0 Urinary tract infection, site not specified; N17.9 Acute kidney failure, unspecified; J44.0 Chronic obstructive pulmonary disease with (acute) lower respiratory infection; E87.1 Hypo-osmolality and hyponatremia; F10.27 Alcohol dependence with alcohol-induced persisting dementia; I50.30 Unspecified diastolic (congestive) heart failure; I13.0 Hypertensive heart and chronic kidney disease with heart failure and stage 1 through stage 4 chronic kidney disease, or unspecified chronic kidney disease; I73.9 Peripheral vascular disease, unspecified; N18.9 Chronic kidney disease, unspecified; I48.0 Paroxysmal atrial fibrillation; R26.9 Unspecified abnormalities of gait and mobility; K52.9 Noninfective gastroenteritis and colitis, unspecified; B96.5 Pseudomonas (aeruginosa) (mallei) (pseudomallei) as the cause of diseases classified elsewhere; E87.8 Other disorders of electrolyte and fluid balance, not elsewhere classified; D50.9 Iron deficiency anemia, unspecified; I35.0 Nonrheumatic aortic (valve) stenosis; E86.9 Volume depletion, unspecified; G31.2 Degeneration of nervous system due to alcohol; E83.42 Hypomagnesemia; J98.4 Other disorders of lung; F02.80 Dementia in other diseases classified elsewhere, unspecified severity, without behavioral disturbance, psychotic disturbance, mood disturbance, and anxiety; E86.0 Dehydration; Z87.891 Personal history of nicotine dependence; Z68.23 Body mass index [BMI] 23.0-23.9, adult; Z79.899 Other long term (current) drug therapy; Z88.8 Allergy status to other drugs, medicaments and biological substances

== ENCOUNTER → 2018-03-22 | Outpatient (CLI) | payer OTHER ==
[~2018-03-22] MED LIST changes: +AMOXICILLIN 50500 MG PO; +ASPIRIN325 PO; +ATENOLOL 100MG100 MG PO; +BENZONATATE100 MG PO; +DIGOXIN250 MCG PO; +FOLIC ACID1 MG PO; +K-DUR 20 MEQ T20 MEQ PO; +LASIX 40 MG TAB40 M1 PO; +LEVALBUTER1.25 MG/0. INH; +LEVAQUIN 500 M500 M1 PO; +LEVAQUIN 500 M500 M3 PO; +PACERONE 200 M200 M1 PO; +PRENATAL TABLE1 EAC2 PO; +PROTONIX 20 MG20 M1 PO; +SEROQUEL 25 MG25 M1 PO; +TOPROL XL100 MG PO; +VITAMIN B-1100 M1 PO
[2018-03-22 12:40] LABS: ALBUMIN 3.1 g/dL (3.4-5.0); CALCIUM 8.4 mg/dL (8.5-10.1); CREATININE 2.5 mg/dL (0.6-1.3); POTASSIUM 4.6 mmol/L (3.5-5.1); TOTAL BILIRUBIN 0.4 mg/dL (<0.1-1.0); TOTAL PROTEIN 8.2 g/dL (6.4-8.2)
== END ==
LOC: M.LAB 12:08
PROVIDERS: Nurse Practitioner Family
DX: I10 Essential (primary) hypertension (principal); J44.9 Chronic obstructive pulmonary disease, unspecified; I73.9 Peripheral vascular disease, unspecified; F17.210 Nicotine dependence, cigarettes, uncomplicated; Z72.89 Other problems related to lifestyle; Z88.8 Allergy status to other drugs, medicaments and biological substances

== ENCOUNTER → 2018-04-05 | Outpatient (CLI) | payer OTHER ==
[2018-04-05 14:26] LABS: CALCIUM 7.7 mg/dL (8.5-10.1); CREATININE 1.7 mg/dL (0.6-1.3); POTASSIUM 4.6 mmol/L (3.5-5.1)
== END ==
LOC: M.LAB 14:01
PROVIDERS: Nurse Practitioner Family
DX: I10 Essential (primary) hypertension (principal)

== ENCOUNTER → 2018-12-05 | Outpatient (CLI) | payer OTHER ==
--- NOTE | 2018-12-05 15:37 | 2DMMODE ---
[place] [address] 2 D/M-MODE ECHOCARDIOGRAM Name: MARGIE LEUNG SR Room: [facility]#: [id number] Admission: 12/05/18 Attend Phys: Jose Mcfadden, Discharge: Date of : 41 Date of Service: 12/05/18 1537 Report #: [id number] THIS REPORT FOR: //name// APPROVED REPORT Study performed: 12/05/2018 13:05:39 EXAM: Comprehensive 2D, Doppler, and color-flow Echocardiogram Patient Location: Out-Patient BSA: 1.64 HR: 46 bpm BP: 126/76 mmHg Other Information Study Quality: Good Indications Aortic Valve Disease 2D Dimensions IVSd: 12.07 (7-11mm) LVOT Diam: 20.45 (18-24mm) LVDd: 42.04 mm PWd: 10.15 (7-11mm) Ascending Ao: 28.45 (22-36mm) LVDs: 30.52 (25-40mm) Aortic Root: 23.43 mm Volumes Left Atrial Volume (Systole) LA ESV Index: 31.40 mL/m2 Aortic Valve AoV Peak Vishal.: 2.71 m/s AO Peak Gr.: 29.45 mmHg LVOT Max P.91 mmHg AO Mean Gr.: 17.35 mmHg LVOT Mean P.32 mmHg LVOT Max V: 0.85 m/s AO V2 VTI: 72.40 cm LVOT Mean V: 0.53 m/s CASSIE (VTI): 0.98 cm2 LVOT V1 VTI: 21.61 cm Mitral Valve E/A Ratio: 0.69 MV Decel. Time: 252.78 ms MV E Max Vishal.: 0.54 m/s MV PHT: 73.31 ms MVA (PHT): 3.00 cm2 [place] [address] 2 D/M-MODE ECHOCARDIOGRAM Name: MARGIE LEUNG SR Room: [facility]#: [id number] Admission: 12/05/18 Attend Phys: Jose Mcfadden, Discharge: Date of : 41 Date of Service: 12/05/18 1537 Report #: [id number] TDI E/Lateral E': 7.71 E/Medial E': 7.71 Medial E' Vishal.: 0.07 m/s Lateral E' Vishal.: 0.07 m/s Pulmonary Valve PV Peak Vishal.: 1.29 m/s PV Peak Gr.: 6.65 mmHg Tricuspid Valve RAP Estimate: 5.00 mmHg TR Peak Gr.: 24.87 mmHg RVSP: 29.87 mmHg PA Pressure: 29.87 mmHg Left Ventricle The left ventricle is normal size. There is normal LV segmental wall motion. There is normal left ventricular wall thickness. Left ventricular systolic function is normal. LVEF is 55%. Grade I - abnormal relaxation pattern. Right Ventricle The right ventricle is normal size. The right ventricular systolic function is normal. Atria The left atrium size is normal. The right atrium size is normal. Aortic Valve Moderate aortic valve sclerosis. No aortic regurgitation is present. Mild to moderate aortic stenosis. Mitral Valve The mitral valve is normal in structure. There is no mitral valve regurgitation noted. No evidence of mitral valve stenosis. Tricuspid Valve The tricuspid valve is normal in structure. Mild tricuspid regurgitation. Pulmonic Valve The pulmonary valve is normal in structure. Mild pulmonic regurgitation. Great Vessels The aortic root is normal in size. IVC is [place] [address] 2 D/M-MODE ECHOCARDIOGRAM Name: MARGIE LEUNG SR Room: [facility]#: [id number] Admission: 12/05/18 Attend Phys: Jose Mcfadden, Discharge: Date of : 41 Date of Service: 12/05/18 1537 Report #: [id number] collapses >50% with inspiration. Pericardium There is no pericardial effusion. <Conclusion> The left ventricle is normal size. There is normal left ventricular wall thickness. Left ventricular systolic function is normal. LVEF is 55%. Grade I - abnormal relaxation pattern. The right ventricle is normal size. The left atrium size is normal. Moderate aortic valve sclerosis. No aortic regurgitation is present. Mild to moderate aortic stenosis. The mitral valve is normal in structure. The tricuspid valve is normal in structure. Mild tricuspid regurgitation. IVC is normal in size and collapses >50% with inspiration. There is no pericardial effusion. There is normal LV segmental wall motion. <ELECTRONICALLY SIGNED> By: Darren Perez MD, [facility] 12/05/18 [phone] Darren Perez MD, FACC /INF
== END ==
LOC: M.CRD 12:55
DX: I08.8 Other rheumatic multiple valve diseases (principal)

== ENCOUNTER 2020-04-18 14:13 | Inpatient (IN) | payer OTHER ==
[~2020-04-18] VITALS: Ht 152.4 cm; Wt 61.2 kg
--- NOTE | ~2020-04-18 | CON ---
[address] [address] CONSULTATION Name: MARGIE LEUNG SR Room: [address] IN [facility]#: [id number] Admission: 04/18/20 Attend Phys: Dominique Urban Discharge: Date of : 41 Report #: [id number] THIS REPORT FOR: //name// cc: ALBERTA - No family physician/PCP ALBERTA - No family physician/PCP ~ DATE OF SERVICE: 04/19/2020 REQUESTING PHYSICIAN: Dr. Skinner. REASON FOR CONSULTATION: Acute kidney injury. HISTORY OF PRESENT ILLNESS: The patient is a 74-year-old white man with medical history significant for dementia, chronic kidney disease stage 3, he presents with complaints of right leg hematoma. There is not documented evidence of fall due to his dementia. The patient lives alone. SOCIAL HISTORY: Positive for tobaccoism and alcoholism. FAMILY HISTORY: Noncontributory. PAST SURGICAL HISTORY: He has a suprapubic catheter in place, history of hernia repair. REVIEW OF SYSTEMS: Unreliable due to his dementia. PHYSICAL EXAMINATION: GENERAL: Awake, disoriented. HEENT: Pupils are round. NECK: Supple. LUNGS: Clear. CARDIOVASCULAR: Regular rate. ABDOMEN: Soft. EXTREMITIES: He has some edema of the right leg. There is ecchymosis in the medial side of the right lower leg. LABORATORY DATA: Report revealed creatinine of 2.7. His creatinine was 1.7 two years ago. Hemoglobin is 11.1. Urine showed presence of leukocyte esterase and many bacteria, many white blood cells. Urine culture, blood cultures pending. In the hospital, he was started on IV fluids and Rocephin. ASSESSMENT: 1. Acute kidney injury likely due to volume depletion, dementia and urinary tract infection. 2. Dementia. 3. Right leg contusion. 4. Right leg deep venous thrombosis, [place] [address] CONSULTATION Name: MARGIE LEUNG SR Room: [address]#: [id number] Admission: 04/18/20 Attend Phys: Dominique Urban Discharge: Date of : 41 Report #: [id number] PLAN: Continue his antibiotics, continue his IV fluids and monitor his labs. By: [id number] Gutierrez MD /nt
[2020-04-18 14:27] VITALS: BP 112/74
[2020-04-18] MEDS ORDERED: TOPROL XL100 MG PO (14:43)
[2020-04-18] MEDS ORDERED: SERTRALINE HCL100 MG PO (14:44)
[2020-04-18] MEDS ORDERED: IPRAT-ALBUT 0.5-3 ML INH (14:46)
[2020-04-18 15:30] LABS: ABSOLUTE BASOPHILS 0.1 thou/uL (0.0-0.2); ABSOLUTE EOSINOPHILS 0.3 thou/uL (0.0-0.7); ABSOLUTE LYMPHOCYTES 1.5 thou/uL (0.8-5.3); ABSOLUTE MONOCYTES 0.3 thou/uL (0.0-1.2); ABSOLUTE NEUTROPHILS 4.3 thou/uL (1.6-8.1); BASOPHILS 1.4 %; EOSINOPHILS 4.4 %; HEMATOCRIT 32.8 % (42.0-52.0); HEMOGLOBIN 11.1 gm/dL (14.0-18.0); LYMPHOCYTES 22.8 %; MCH 28.7 pg (26.0-34.0); MCHC 33.7 g/dL (28.0-37.0); MCV 85.1 fL (80.0-100.0); MONOCYTES 5.3 %; MPV 6.4 fl. (7.2-11.1); NUCLEATED RBCS 0 /100WBC; PLATELET COUNT* 258 thou/uL (150-400); POLYS 66.1 %; RBC 3.86 mil/uL (4.50-6.00); RDW-CV 13.3 % (10.5-14.5); WBC 6.5 thou/uL (4.0-11.0)
[2020-04-18 15:38] LABS: CALCIUM 8.4 mg/dL (8.5-10.1); CREATININE 2.7 mg/dL (0.6-1.3); POTASSIUM 4.6 mmol/L (3.5-5.1)
[2020-04-18 15:39] LABS: APTT 25.3 Seconds (25.0-31.3); INR 1.2
[2020-04-18 15:49] LABS: ALBUMIN 3.2 g/dL (3.4-5.0); TOTAL BILIRUBIN 1.2 mg/dL (<0.1-1.0); TOTAL PROTEIN 7.8 g/dL (6.4-8.2)
[2020-04-18 15:56] LABS: URINE BILIRUBIN NEGATIVE (Negative); URINE BLOOD TRACE (Negative); URINE CLARITY SL CLOUDY; URINE COLOR YELLOW; URINE GLUCOSE-RANDOM NEGATIVE (Negative); URINE KETONES NEGATIVE (Negative); URINE PROTEIN TRACE (Negative); URINE SPECIFIC GRAVITY 1.015 (1.005-1.030); URINE UROBILINOGEN 0.2 E.U./dl (0.2-1.0)
[2020-04-18 15:58] LABS: URINE LEUKOCYTES-REFLEX 3+ (Negative); URINE NITRITE-REFLEX POSITIVE (Negative)
[2020-04-18 16:03] LABS: SQUAMOUS >10 Many /LPF (0-3)
[2020-04-18 16:04] LABS: BACTERIA-REFLEX >30 Many /HPF (None Seen); MUCUS None Seen strn/LPF (None Seen); URINE WBC-REFLEX >25 Many /HPF (0-5)
[2020-04-18 16:05] LABS: CASTS None Seen /LPF (None Seen); CRYSTALS None Seen /LPF (None Seen); URINE RBC 0-2 Rare /HPF (0-2)
[2020-04-18 19:32] VITALS: BP 106/80
[2020-04-18 20:00] VITALS: BP 134/52
[2020-04-19 07:41] VITALS: BP 120/52
--- NOTE | 2020-04-19 12:14 | EKG ---
[place] [address] ELECTROCARDIOGRAM REPORT Name: MARGIE LEUNG SR Room: [address] ADM IN M.R.#: [id number] Admission: 04/18/20 Attend Phys: Isabell Skinner Discharge: Date of : 41 Date of Service: 04/18/20 1514 Report #: [id number] THIS REPORT FOR: //name// [facility] ED Test Date: 2020-04-18 Test Time: 15:14:41 Pat Name: MARGIE LEUNG Department: Room: [facility] Gender: M Domestic Maid: [facility] : 1945 Requested By: Maria T Daigle Order Number: [id number] MD: Joel Sanchez Measurements Intervals [place] Rate: 55 P: -8 WA: 143 QRS: 60 QRSD: 102 T: 35 QT: 465 QTc: 445 Interpretive Statements Sinus rhythm Nonspecific repol abnormality, diffuse leads Compared to ECG 03/07/2018 21:34:03 Early repolarization now present Atrial flutter no longer present AV block, advanced (high-grade) no longer present Ventricular premature complex(es) no longer present Electronically Signed On 04-19-2020 12:13:52 CDT by Joel Sanchez [email or web address] <ELECTRONICALLY SIGNED> By: Colt Sanchez MD, [facility]PITALManny 04/19/20 1213 1514 Colt Sanchez MD, FACManny /EPI
[2020-04-19 14:40] LABS: URINE BILIRUBIN NEGATIVE (Negative); URINE BLOOD TRACE (Negative); URINE CLARITY CLEAR; URINE COLOR YELLOW; URINE GLUCOSE-RANDOM NEGATIVE (Negative); URINE KETONES NEGATIVE (Negative); URINE LEUKOCYTES 3+ (Negative); URINE NITRITE POSITIVE (Negative); URINE PROTEIN NEGATIVE (Negative); URINE SPECIFIC GRAVITY 1.015 (1.005-1.030); URINE UROBILINOGEN 0.2 E.U./dl (0.2-1.0)
[2020-04-19 14:47] LABS: CALCIUM 7.7 mg/dL (8.5-10.1)
[2020-04-19 14:53] LABS: BACTERIA 1-9 Few /HPF (None Seen); CASTS None Seen /LPF (None Seen); MUCUS None Seen strn/LPF (None Seen); SQUAMOUS 4-10 Moderate /LPF (0-3)
[2020-04-19 14:54] LABS: CRYSTALS None Seen /LPF (None Seen); URINE RBC 0-2 Rare /HPF (0-2); WBC CLUMPS Few (None Seen)
[2020-04-19] MEDS ORDERED: BACTRIM DS TAB1 EAC1 PO (15:02)
[2020-04-19 15:05] VITALS: BP 120/52
[2020-04-19 15:28] VITALS: BP 120/52
== END 2020-04-19 15:31 | disposition home or self-care (01) | DRG 299 ==
LOC: M.ERS 14:13 → M.TBA-ER 16:36 → M.ORTHSURG 16:36
PROVIDERS: Nurse Practitioner Family; ADMIT Internal Medicine; ATTEND Internal Medicine
DX: I82.431 Acute embolism and thrombosis of right popliteal vein (principal); N17.0 Acute kidney failure with tubular necrosis; G93.41 Metabolic encephalopathy; N30.00 Acute cystitis without hematuria; S80.11XA Contusion of right lower leg, initial encounter; J44.9 Chronic obstructive pulmonary disease, unspecified; D64.9 Anemia, unspecified; F03.90 Unspecified dementia, unspecified severity, without behavioral disturbance, psychotic disturbance, mood disturbance, and anxiety; N18.30 Chronic kidney disease, stage 3 unspecified; X58.XXXA Exposure to other specified factors, initial encounter; I73.9 Peripheral vascular disease, unspecified; Z20.828 Contact with and (suspected) exposure to other viral communicable diseases; Z79.82 Long term (current) use of aspirin; Z79.899 Other long term (current) drug therapy; Z88.8 Allergy status to other drugs, medicaments and biological substances; Z87.891 Personal history of nicotine dependence; Y93.89 Activity, other specified; Y92.89 Other specified places as the place of occurrence of the external cause; Y99.8 Other external cause status